=== PATIENT | female | born 1970 | race Caucasian/White ===

== ENCOUNTER 2022-08-09 09:30 | Day surgery (SDC) | payer OTHER, SELFPAY ==
[2022-08-07 13:50] VITALS: BMI 25.7
--- NOTE | 2022-08-08 12:14 | P.CONAN_ITS ---
HPI - Anesthesia Eval Consult details Narrative: 51yo F for Colonoscopy PMFSH Active Problems Active Problems: All Active Problems (Updated 08/07/22 @ 13:48 by Ana M Kebede, RN) Chronic constipation (Acute) Encounter for screening colonoscopy (Acute) Past Medical History Medical History Chronic constipation Family History Family History (Updated 01/09/22 @ 07:52 by NISHA Cheng) Mother HTN (hypertension) Father Crohn disease Daughter Ulcerative colitis Sister Hypothyroid Maternal Grandmother Hypothyroid Surgical History Surgical History (Updated 08/16/22 @ 11:53 by Kelsi Ruth) Hx of cholecystectomy Hx of colonoscopy Social History Social History (Updated 01/09/22 @ 08:05 by Maggie Sol PA-C) Household Members Other:: 2 grown kids- Alcohol intake: current Patient Tobacco Use Status: Former Tobacco user Quit Date: quit 2018 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 Meds Allergies Allergy/AdvReac Type Severity Reaction Status Date / Time COVID-19 vaccine, mRNA, Allergy Mild Unknown Verified 01/09/22 07:50 [id number], iodine Allergy Mild Unknown Verified 01/09/22 07:50 Latex, Natural Rubber Allergy Mild Unknown Verified 01/09/22 07:50 Sulfa (Sulfonamide Allergy Mild Unknown Verified 01/09/22 07:50 Antibiotics) nitrofurantoin Allergy Unknown Unknown Verified 01/09/22 07:50 [From Macrobid] Home Medications Medication Instructions Recorded Confirmed Last Taken Type linaclotide 290 mcg capsule 290 mcg PO DAILY 01/09/22 08/07/22 Unknown History (Linzess) liraglutide (weight loss) 3 mg/0.5 3 mg subcut DAILY 01/09/22 08/07/22 Unknown History mL (18 mg/3 mL) subcut pen injector (Saxenda) modafinil 200 mg tablet 200 mg PO DAILY 01/09/22 08/07/22 Unknown History ondansetron HCl 8 mg tablet 8 mg PO BID PRN Nausea 01/09/22 08/07/22 Unknown History Exam Exam Date and Time: August 08, 2022 1214 Height,Weight and Vital Signs: Height 5 ft 4 in Weight 68.039 kg Assessment and Plan Assessment Anesthesia Assessment: Chart Reviewed
[2022-08-09 09:49] VITALS: BMI 28.0
[2022-08-09] MEDS: Lactated Ringers 1,000 ML 100 ML IVCONT (10:08)
[2022-08-09 10:09] VITALS: BP 117/79; PULSE 85; RESP 16; TEMP 36.2; O2SAT 100
--- NOTE | 2022-08-09 10:22 | P.HPSUR_ITS ---
Pre-Procedural Eval Section A Date of Service: 08/09/22 Section B Chief Complaint: screening Details of Present Illness: also hx of longstanding constipation FH of IBD Relevant Family History (Specify if Yes): Yes Relevant Social History: None Present Medications: see Short Stay Collaborative assessment Medical History: Significant History (constipation ) History of Previous Operations: Relevant previous surgery/procedure and date(s) (Hx of cholecystectomy Hx of colonoscopy) Allergies: Allergies Allergy/AdvReac Type Severity Reaction Status Date / Time COVID-19 vaccine, mRNA, Allergy Mild Unknown Verified 01/09/22 07:50 [id number], iodine Allergy Mild Unknown Verified 01/09/22 07:50 Latex, Natural Rubber Allergy Mild Unknown Verified 01/09/22 07:50 Sulfa (Sulfonamide Allergy Mild Unknown Verified 01/09/22 07:50 Antibiotics) nitrofurantoin Allergy Unknown Unknown Verified 01/09/22 07:50 [From Macrobid] Review of Systems Sugical H&P ROS: Negative: Constitution, Cardiovascular, Respiratory, Neurolog ical, Psychiatric, Hem-Onc, Allergic/Immunologic, Gastrointestinal, Genitourinary, Musculoskeletal, Integumentary, Endocrine and Eyes/Ears/Nose/Throat Exam Surgical H&P Exam: Normal: HEENT, Normal: Heart, Normal: Lungs, Normal: Extremities, Normal: Abdomen, Normal: Skin and Normal: Neurological Plan Diagnosis/Plan: Unchanged I have reviewed the history and physical and performed a pertinent physical examination on my patient. No changes have occurred unless specified. Time Spent With Patient Time: Total time managing care of this patient today ____ minutes.
--- NOTE | 2022-08-09 10:28 | P.OP_ITS ---
Operative Note Operative Note Date of Service: 08/09/22 Narrative: Operative Information Procedure Description: Colonoscopy Indication: screening Anesthesia: MAC COLONOSCOPY Instrument: Olympus variable stiffness pediatric scope 190L Colonoscopy Monitoring: Vital signs and clinical assessment, continuous EKG monitoring, Pulse oximetry, Carbon Dioxide monitoring and blood pressure monitoring were done throughout the procedure. Colon withdrawal time was 10 minutes. Procedure: The patient was placed in the left lateral decubitis position and pre-procedure medications were administered. After a digital rectal examination of the ano-rectum, the video colonoscope was inserted into the rectum and advanced through the colon to the cecum/TI. The colonoscope was slowly withdrawn in a retrograde panoramic fashion and the colon mucosa was carefully examined including a retroflexed view of the rectum. Findings and interventions are described below. Procedure Difficulty: moderate due to redundant colon Findings: Terminal Ileum-normal Cecum:normal Ascending Colon: few scattered diverticula Transverse Colon -normal Descending Colon: scattered diverticula Sigmoid Colon: moderate diverticulosis Rectum: Retroflexion with small internal hemorrhoids, grade I, cold snare biopsy taken to r/o hirschsprungs Anorectum - normal (normal tone and no paradoxical closure when bearing down) Colon preparation: [place] Bowel Preparation Scale Right colon; 2 Transverse colon: 2 Left colon; 2 (0 = Unprepared colon segment with mucosa not seen due to solid stool that cannot be cleared. 1 = Portion of mucosa of the colon segment seen, but other areas of the colon segment not well seen due to staining, residual stool and/or opaque liquid. 2 = Minor amount of residual staining, small fragments of stool and/or opaque liquid, but mucosa of colon segment seen well. 3 = Entire mucosa of colon segment seen well with no residual staining, small fragments of stool or opaque liquid) Impression and Post Procedure Diagnosis: redundant colon internal hemorrhoids diverticular disease Plan: High fiber diet leaflet Avoid straining at stool, epsom salts and sitz bath, anusol supps or cream Repeat Colonoscopy in 10 years or earlier if clinically indicated if ongoing constipation recommend Mr defecography (manually manipulates for stool evacuation--r/o rectocele) Above findings were reviewed with the patient and relevant handouts were provided if indicated.
[2022-08-09 11:13] VITALS: BP 116/73; PULSE 88; RESP 16; TEMP 36.4; O2SAT 99
[2022-08-09 11:28] VITALS: BP 126/77; PULSE 72; RESP 14; TEMP 36.4; O2SAT 99
[2022-08-09 11:43] VITALS: BP 122/78; PULSE 83; RESP 15; TEMP 36.5; O2SAT 99
== END 2022-08-09 11:50 | disposition home or self-care (01) ==
PROVIDERS: PCP Hospitalist; Visit Provider Internal Medicine Gastroenterology
PROC: 0DJD8ZZ Inspection of Lower Intestinal Tract, Via Natural or Artificial Opening Endoscopic (ICD-10-PCS; CPT 45378; principal; 2022-08-09 11:00)
DX: Z12.11 Encounter for screening for malignant neoplasm of colon (principal); K57.30 Diverticulosis of large intestine without perforation or abscess without bleeding; K64.0 First degree hemorrhoids; K59.09 Other constipation; Z90.49 Acquired absence of other specified parts of digestive tract; Z88.2 Allergy status to sulfonamides; Z88.7 Allergy status to serum and vaccine; Z88.8 Allergy status to other drugs, medicaments and biological substances; Z91.041 Radiographic dye allergy status; Z91.040 Latex allergy status; Z87.891 Personal history of nicotine dependence
CPT/HCPCS: 45385; 88305; 88342

== ENCOUNTER 2022-08-11 11:31 | Outpatient (REF) | payer OTHER, SELFPAY ==
--- NOTE | ~2022-08-11 | MM_ITS ---
EXAMINATION: MM SCREENING DIGITAL BREAST TOMOSYNTHESIS, BILATERAL CLINICAL INFORMATION: Screening. Asymptomatic. The lifetime risk of breast cancer based on the Tyrer-Cuzick Model is 12%. COMPARISON: Outside mammography: 07/20/2021, 07/08/2021, 07/07/2019, 06/01/2020, 07/18/2018 ([facility]). TECHNIQUE: Digital breast tomosynthesis is performed in both the craniocaudal and mediolateral oblique views along with computer-aided detection (CAD). Synthesized 2D images are generated from the tomosynthesis. FINDINGS: There are scattered areas of fibroglandular density (ACR BI-RADS breast composition Category b). There are no significant masses, abnormal calcifications, or other abnormalities. Parenchymal pattern is similar to prior studies. There is no developing density or architectural abnormality. There is biopsy clip marker left breast upper outer quadrant. The axilla and skin contours are unremarkable. No significant changes. MM/MM tomosynthesis screening BI IMPRESSION: No mammographic evidence of malignancy. ASSESSMENT: BI-RADS 1: Negative RECOMMENDATION: Routine annual mammography screening. This patient's information was entered into a reminder system with a target due date for their next mammogram.
== END 2022-08-11 11:32 | disposition home or self-care (01) ==
LOC: HO.MAMMO 11:31
PROVIDERS: Visit Provider Hospitalist
DX: Z12.31 Encounter for screening mammogram for malignant neoplasm of breast (principal)
CPT/HCPCS: 77063; 77067

== ENCOUNTER → 2022-08-23 07:20 | Outpatient (BNVA) | payer OTHER, SELFPAY | PROVIDERS: PCP Hospitalist; Visit Provider Physician Assistant ==

== ENCOUNTER 2023-02-06 06:53 | Outpatient (REF) | payer OTHER, SELFPAY ==
[2023-02-06 21:11] LABS: Alanine Aminotransferase 22 U/L (0-31); Albumin Level 4.3 g/dL (3.5-5.0); Alkaline Phosphatase 80 U/L (39-117); Anion Gap 12 (12-20); Aspartate Amino Transferase 20 U/L (5-31); Bilirubin Total 0.6 mg/dL (0.0-1.0); Blood Urea Nitrogen 8 mg/dL (9-16); Calcium 9.9 mg/dL (8.4-10.2); Carbon Dioxide 27 mmol/L (22-29); Chloride 106 mmol/L (96-108); Cholesterol 184 mg/dL (<200); Estimated Glomerular Filt Rate > 60; Glucose Random 80 mg/dL (60-115); HDL Cholesterol 57 mg/dL (>40); LDL Cholesterol Calculated 116 mg/dL (<100); Potassium 4.7 mmol/L (3.3-5.1); Sodium 140 mmol/L (135-145); Total Protein 7.2 g/dL (6.5-8.0); Triglycerides 57 mg/dL (<150)
[2023-02-06 21:27] LABS: Thyroid Stimulating Hormone 1.09 uIU/mL (0.32-4.0)
== END 2023-02-06 06:54 | disposition home or self-care (01) ==
LOC: HO.LAB 06:53
PROVIDERS: PCP Hospitalist; Visit Provider Hospitalist
DX: Z00.00 Encounter for general adult medical examination without abnormal findings (principal)
CPT/HCPCS: 36415; 80053; 80061; 84443

== ENCOUNTER 2023-07-12 13:18 | Outpatient (AMB) | payer OTHER, SELFPAY ==
--- NOTE | 2023-07-12 08:49 | MHC.OFFVIS ---
Intake Visit Reasons: Former Smoker Allergies COVID-19 vaccine, mRNA, [id number], Allergy (Mild, Verified 08/23/22 07:30) Unknown iodine Allergy (Mild, Verified 08/23/22 07:30) Unknown Latex, Natural Rubber Allergy (Mild, Verified 08/23/22 07:30) Unknown Sulfa (Sulfonamide Antibiotics) Allergy (Mild, Verified 08/23/22 07:30) Unknown nitrofurantoin [From Macrobid] Allergy (Unknown, Verified 08/23/22 07:30) Unknown HPI HPI Former Smoker: Details: [phone] Initial visit for this 52yo former smoker with a 30PYH. Patient started smoking at age 12 for 35 years at 1ppd. She quit in 2019. Quit prior during pregnancies. . Denies marijuana use. Denies second hand smoke exposure. Denies exposure to chemicals or substances like asbestos. . Denies known family history of lung cancer. Paternal grandmother in 80's. Denies personal history of cancers. Denies chest CT in last year. . Denies recent travel outside the [place]. Denies recent respiratory illness or recent hospitalization for respiratory issues. Reports testing positive for COVID. Admits receiving COVID Vaccine. Allergic reaction to first pfizer shot then 2 J&J shots. . Denies fever, chills, new/worsening cough, hemoptysis, hoarseness or dysphagia. Denies significant chest pain, significant dyspnea or unintentional weight loss. Patient Lung Cancer Screening Questionnaire reviewed with patient by provider. . Shared Decision Making Completed. Patient meets criteria. Discussed in detail with patient, the risk vs benefit of LDCT screening. Patient consents to proceed with scan. Discussed and encouraged continued smoking cessation. [facility] Medical History (Updated 07/12/23 @ 10:46 by Kenia Colvin PA-C) Diverticulosis Chronic constipation Personal history of nicotine dependence Surgical History (Updated 07/12/23 @ 10:42 by Kenia Colvin PA-C) History of bunionectomy of left great toe History of colonoscopy History of cholecystectomy (~2005) Family History Mother HTN (hypertension) Father Crohn disease Daughter Ulcerative colitis Sister Hypothyroid Maternal Grandmother Hypothyroid Social History (Updated 07/12/23 @ 10:46 by Kenia Colvin PA-C) Household Members Other:: 2 grown kids- Alcohol intake: current Patient Tobacco Use Status: Former Tobacco user Quit Date: quit 2018 Years Smoked: onset 12yo, 1ppd x 35yrs, 30pyh - quit 2018 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 Telehealth Telehealth Telehealth Platform: Telephone Location of patient: address on file Patient Identification confirmed using: Name, : Yes Telehealth method: voice only Patient verbally consented to treatment: Yes Patient verbally consented to billing insurance company: Yes Patient informed of any privacy concerns related to visit: Yes Minutes spent on Phone/Video with Pt.: 15 Assessment & Plan Assessment & Plan (1) Personal history of nicotine dependence: Comment: (former smoker- onset 12yo, 1ppd x 35yrs, 30pyh - quit 2018) Code(s): Z87.891 - Personal history of nicotine dependence Category: Medical Plan: - SDM visit completed today in office. - Patient meets criteria for LDCT for lung cancer screening purposes and is asymptomatic. - Smoking cessation counseling offered. Patients can always call [phone]. - Will arrange for a LDCT scan of the chest for screening purposes at [facility]. - Risks, benefits, and alternatives were discussed in detail and the patient agrees to proceed. - Risks discussed include but are not limited to: radiation exposure, anxiety during testing and while awaiting results, false negatives, false positives and possibility of additional intervention such as further imaging or surgical procedures for benign disease. - Benefits are obviously detection of lung cancer at an early stage which can lead to improved outcomes. - Discussed the importance of screening program compliance with adherence to yearly LDCT scan as scheduled - or sooner interval scans for personalized screening regimen. - Discussed follow up plan. Our office will send a letter discussing results and if needed set up phone call and office visit based on CT findings. - Patient educated on results categorization and the management decisions for suspicious findings potentially found on the screening LDCT scan. Any patient with a Lung RADS score of 3 or 4 will be reviewed by a multidisciplinary team at [facility] to form a plan of action in regards to scan findings. - If further work up is warranted for a suspicious lung finding this will be followed by the Lung Cancer Screening program in conjunction with the Thoracic Surgery Department at [facility]. - A copy of the office note and LDCT will be sent to the patient's PCP - as well as documentation on any associated further plans of care. - Incidental findings on LDCT are the PCP's responsibility. These findings are indicated with an S finding on the LDCT Assessment. A note discussing the findings will be sent to the PCP who is then responsible for further management. - All questions answered.? Coding Level of Care Code Lung Cancer Screening G0296 Diagnoses Personal history of nicotine dependence Z87.891
== END 2023-07-12 13:20 | disposition home or self-care (01) ==
LOC: HO.HMS 13:18
PROVIDERS: PCP Hospitalist; Referring Provider Hospitalist; Visit Provider Physician Assistant Medical
DX: Z87.891 Personal history of nicotine dependence (principal)
CPT/HCPCS: G0296

== ENCOUNTER → 2023-07-12 13:18 | Outpatient (BNVA) | payer OTHER, SELFPAY | PROVIDERS: PCP Hospitalist; Visit Provider Physician Assistant Medical | DX: Z87.891 Personal history of nicotine dependence (principal) | CPT/HCPCS: G0296 ==

== ENCOUNTER 2023-07-13 10:20 | Outpatient (REF) | payer OTHER, SELFPAY ==
--- NOTE | ~2023-07-13 | CT_ITS ---
EXAMINATION: CT LOW-DOSE SCREENING CHEST WITHOUT CONTRAST CLINICAL INFORMATION: Personal history of nicotine dependence. The patient has a 30 pack-year history of smoking, having quit 1 year ago. COMPARISON: None available. TECHNIQUE: Multidetector volumetric CT imaging of the chest is performed on a Siemens SOMATOM Definition scanner without contrast using low dose technique. Additional 2-D coronal and sagittal reformatted images and axial 3-D maximum intensity projection (MIP) images are generated on the CT workstation. This CT examination was performed using dose optimization techniques as appropriate, variously including the following: *Automated exposure control. *Adjustment of mA and/or kV according to patient size (this includes techniques or standardized protocols for targeted exams where dose is matched to indication/reason for exam; i.e. extremities or head). *Use of iterative reconstruction technique. TOTAL EXAM DLP: 42 mGy-cm CTDIvol: 1.21 mGy FINDINGS: PULMONARY NODULES: Some scattered calcified granulomas are present. There is a 3 mm left lower lobe nodule (6:348). No suspicious pulmonary nodules or masses are seen. LUNGS: An accessory azygos fissure is noted. Lungs bilaterally symmetrically expanded. No focal lung nodule or mass. No effusion or pneumothorax. Central airways patent. MEDIASTINUM: No mediastinal, hilar or axillary adenopathy or free fluid collection. CORONARY ARTERY CALCIFICATION: None visualized on this study. THYROID GLAND: Unremarkable to the extent seen. CARDIOVASCULAR STRUCTURES: Aortic and heart size normal. No pericardial effusion. CHEST WALL/AXILLA: Unremarkable. UPPER ABDOMEN: Included portions of the solid organs in the upper abdomen unremarkable on noncontrast imaging. Status post cholecystectomy. OSSEOUS STRUCTURES: No suspicious focal findings. CT/CT lung screening IMPRESSION: No finding seen worrisome for malignancy. Small benign-appearing left lower lobe nodule. ASSESSMENT: 1. Lung-RADS Category 2: Benign appearance or behavior of nodules. N/A. 2. Lung-RADS Category S: Negative. There are no clinically significant or potentially clinically significant findings not related to the lungs requiring urgent additional evaluation. RECOMMENDATION: Continued routine annual low-dose CT lung screening in 1 year is recommended. An order for CT CHEST LOW DOSE CANCER SCREENING ([id number]) can be placed.
== END 2023-07-13 10:21 | disposition home or self-care (01) ==
LOC: HO.CT 10:20
PROVIDERS: PCP Hospitalist; Visit Provider Nurse Practitioner Family
DX: Z12.2 Encounter for screening for malignant neoplasm of respiratory organs (principal); Z87.891 Personal history of nicotine dependence
CPT/HCPCS: 71271

== ENCOUNTER 2023-09-05 07:53 | Outpatient (REF) | payer OTHER, SELFPAY ==
--- NOTE | ~2023-09-05 | MM_ITS ---
EXAMINATION: MM SCREENING DIGITAL BREAST TOMOSYNTHESIS, BILATERAL CLINICAL INFORMATION: Screening. Asymptomatic. COMPARISON: Mammography: This study is compared with prior exams dating back to 2019. TECHNIQUE: Digital breast tomosynthesis is performed in both the craniocaudal and mediolateral oblique views along with computer-aided detection (CAD). Synthesized 2D images are generated from the tomosynthesis. FINDINGS: There are scattered areas of fibroglandular density (ACR BI-RADS breast composition Category b). There are no significant masses, abnormal calcifications, or other abnormalities. IMPRESSION There is tissue marker in a subcentimeter, oval, benign mass of the upper outer quadrant of the left breast.: No mammographic evidence of malignancy. ASSESSMENT: BI-RADS BI-RADS 2 - Benign Findings RECOMMENDATION: Routine annual mammography screening. 1 year F/U This examination should not preclude the clinical evaluation of a suspicious palpable abnormality. This patient's information was entered into a reminder system with a target due date for their next mammogram.
== END 2023-09-05 07:54 | disposition home or self-care (01) ==
LOC: HO.MAMMO 07:53
PROVIDERS: PCP Hospitalist; Visit Provider Hospitalist
DX: Z12.31 Encounter for screening mammogram for malignant neoplasm of breast (principal)
CPT/HCPCS: 77063; 77067

== ENCOUNTER → 2023-09-05 08:00 | Outpatient (BNV) | payer OTHER, SELFPAY | PROVIDERS: PCP Hospitalist; Visit Provider Radiology Diagnostic Radiology | DX: Z12.31 Encounter for screening mammogram for malignant neoplasm of breast (principal) | CPT/HCPCS: 77063; 77067 ==

== ENCOUNTER 2023-09-17 15:52 | Outpatient (REF) | payer OTHER, SELFPAY ==
--- NOTE | ~2023-09-17 | US_ITS ---
EXAMINATION: US PELVIS CLINICAL INFORMATION: Abnormal uterine bleeding, IUD in place. COMPARISON: None available. TECHNIQUE: Ultrasound of the pelvis is performed using both transabdominal and transvaginal transducers along with Doppler. Transvaginal imaging is performed due to inadequate visualization transabdominally. FINDINGS: Uterus: The uterus measures 6.7 x 3.4 x 4.7 cm. The endometrial stripe is obscured because of the IUD but does not appear thickened. The IUD appears appropriately positioned. Adnexa: The right ovary is seen transvaginally measuring 2.2 x 1.2 x 1.5 cm, volume 2 mL. The right ovary appears normal. The left ovary is suboptimally imaged visualized only transabdominally. The left ovary measures 4.1 x 2.6 x 3.5 cm, volume 19.5 mL. Normal follicles are seen in both ovaries. US/US pelvic and transvaginal IMPRESSION: IUD appears appropriately positioned. The IUD obscures the endometrial stripe but it does not appear significantly thickened.
== END 2023-09-17 15:53 | disposition home or self-care (01) ==
LOC: HO.US 15:52
PROVIDERS: PCP Hospitalist; Visit Provider Obstetrics & Gynecology
DX: N93.9 Abnormal uterine and vaginal bleeding, unspecified (principal)
CPT/HCPCS: 76830; 76856

== ENCOUNTER 2024-01-08 20:00 | Outpatient (REF) | payer OTHER, SELFPAY ==
[2024-01-08 20:06] LABS: MANUAL DIFF FLAG NO
[2024-01-08 20:09] LABS: Basophils Percent Auto 0.4 % (0-2); Eosinophils Absolute Auto 0.1 X10*3/uL (0.0-0.4); Eosinophils Percent Auto 1.4 % (0-4); Hematocrit 41.4 % (37.0-47.0); Hemoglobin 14.4 g/dl (12.0-16.0); Imm Gran Abs Auto 0.01 X10*3/uL (0.00-0.03); Imm Gran Pct Auto 0.1 % (0.0-0.4); Lymphocytes Absolute Auto 2.5 X10*3/uL (1.2-4.9); Lymphocytes Percent Auto 33.3 % (20-40); Mean Corpuscular HGB Conc 34.8 g/dl (31.0-35.0); Mean Corpuscular Hemoglobin 32.2 pg (27.0-33.0); Mean Corpuscular Volume 92.6 fL (80.0-98.0); Mean Platelet Volume 8.8 fL (9.4-12.3); Monocytes Absolute Auto 0.6 X10*3/uL (0.1-1.2); Monocytes Percent Auto 7.4 % (2-11); Neutrophils Absolute Auto 4.4 x10*3/uL (2.0-8.3); Neutrophils Percent Auto 57.4 % (45-73); Platelet Count 269 X10*3/uL (160-400); Red Blood Count 4.47 X10*6/uL (4.20-5.50); Red Cell Distribution Width 13.1 % (11.0-16.0); White Blood Count 7.6 X10*3/uL (4.8-10.8)
[2024-01-08 20:29] LABS: Alanine Aminotransferase 28 U/L (0-31); Albumin Level 4.4 g/dL (3.5-5.0); Alkaline Phosphatase 80 U/L (39-117); Anion Gap 11 (12-20); Aspartate Amino Transferase 24 U/L (5-31); Bilirubin Total 0.6 mg/dL (0.0-1.0); Blood Urea Nitrogen 11 mg/dL (9-16); Calcium 9.8 mg/dL (8.4-10.2); Carbon Dioxide 27 mmol/L (22-29); Chloride 104 mmol/L (96-108); Cholesterol 209 mg/dL (<200); Estimated Glomerular Filt Rate > 60; Glucose Random 92 mg/dL (60-115); HDL Cholesterol 81 mg/dL (>40); LDL Cholesterol Calculated 119 mg/dL (<100); Potassium 4.4 mmol/L (3.3-5.1); Sodium 138 mmol/L (135-145); Total Protein 7.1 g/dL (6.5-8.0); Triglycerides 48 mg/dL (<150)
== END 2024-01-08 20:01 | disposition home or self-care (01) ==
LOC: HO.LAB 20:00
PROVIDERS: PCP Hospitalist; Visit Provider Hospitalist
DX: E66.09 Other obesity due to excess calories (principal)
CPT/HCPCS: 36415; 80053; 80061; 85025

== ENCOUNTER 2024-09-10 07:28 | Outpatient (REF) | payer OTHER, SELFPAY ==
--- NOTE | ~2024-09-10 | CT_ITS ---
EXAMINATION: CT LUNG SCREENING HISTORY: Z87.891 - Personal history of nicotine dependence TECHNIQUE: Low dose axial images were obtained from the sternal notch to upper abdomen without IV contrast per standard departmental protocol. Sagittal and coronal reformatted images were also obtained and reviewed. One or more of the following techniques was used for dose reduction: Automated exposure control, adjustment of the mA and/or kV according to patient size, use of iterative reconstruction technique. DLP: 48 mGy-cm COMPARISON: Comparison is made with the prior examination dated 07/13/2023. FINDINGS: Lung nodules: Again seen are punctate calcified granulomas in the right lower lobe (series 4, image 85) and in the left lower lobe (series 4, image 102). There is a stable 2 mm nodule in the left lower lobe (series 4, image 117). No suspicious pulmonary nodules are identified. Emphysema: mild Coronary Calcification: none Aortic Arch Calcification: none Potentially Significant Incidentals : none Additional Chest Findings: There is no pleural or pericardial effusion. No mediastinal or axillary lymphadenopathy is identified. Visualized upper abdomen: Again seen is a 1.5 cm hypodensity in the left lobe of the liver which is difficult to characterize on this unenhanced examination. The visualized portions of the spleen and adrenals have an unremarkable unenhanced appearance. CT/CT lung screening IMPRESSION: 1. No suspicious pulmonary nodules are identified. 2. Stable 1.5 cm hypodensity in the left lobe of the liver could represent a cyst. Evaluation is limited on this unenhanced CT. Ultrasound evaluation is suggested. LUNG-RADS ASSESSMENT: Lung-RADS 2: Benign MANAGEMENT: Continue annual screening with LDCT in 12 months Category S: N/A Electronically signed by: Martinez Horn MD 09/10/2024 09:04 AM EDT
--- NOTE | ~2024-09-10 | MM_ITS ---
EXAMINATION: MM SCREENING DIGITAL BREAST TOMOSYNTHESIS, BILATERAL CLINICAL INFORMATION: Screening. Asymptomatic. COMPARISON: Mammography: Comparison is made with available priors TECHNIQUE: Digital breast mammography with tomosynthesis is performed in both the craniocaudal and mediolateral oblique views along with computer-aided detection (CAD). FINDINGS: There are scattered areas of fibroglandular density (ACR BI-RADS breast composition Category b). Left marker clip. There are no significant masses, abnormal calcifications, or other abnormalities. MM/MM tomosynthesis screening BI IMPRESSION: No mammographic evidence of malignancy. ASSESSMENT: BI-RADS BI-RADS 2 - Benign Findings RECOMMENDATION: Routine annual mammography screening. 1 year F/U This examination should not preclude the clinical evaluation of a suspicious palpable abnormality. This patient's information was entered into a reminder system with a target due date for their next mammogram. Electronically signed by: Marion Tirado DO 09/13/2024 01:49 PM EDT
--- OUTSIDE RECORDS SUMMARY | 2024-09-10 07:31 | XMS_ITS | Data Portability ---
Author Organization [facility] [address] Address [address] [place] [address] Assessment No assessment recorded. Plan of Treatment Reminders Order Date Submit Date Provider Last Modified By Organization Details Last Modified Time Details Appointments None record ed. Lab None record ed. Referral None record ed. Procedures None record ed. Surgeries None record ed. Imaging None record ed. Medication Orders None record ed. Patient TargetsNo targets recorded. Patient InstructionsNo instructions recorded. Reason for Referral None Reported. Procedures Surgical History Date Name Laterality Status Provider Name and Address Organization Details Recorded Time 3 OC-UDS Send Out Template NON DOT completed LORETTA BROOKS [facility] 06/08/2022 08:26:39 Imaging Results None recorded. Procedure Notes None recorded. Medical Equipment None Reported. Medications Name Sig Start Date Stop Date Status Note LastModified by Organization Details LastModified Time cefpodoxime 100 mg tablet TAKE 1 TABLET BY MOUTH EVERY 12 HOURS FOR 7 DAYS active Not Available Not Available N ot Available ondansetron HCl 8 mg tablet TAKE 1 TABLET ORALLY 2 TIMES A DAY 30 DAY(S) active Not Available Not Available No t Available valacyclovir 500 mg tablet active Not Available Not Available Not Available modafinil 200 mg tablet TAKE 1 TABLET IN THE MORNING ORALLY ONCE A DAY 28 DAYS active Not Available Not Available No t Available amitriptylin e 10 mg tablet TAKE 1 TABLET BY MOUTH EVERY DAY AT BEDTIME FOR 30 DAYS active Not Available Not Available No t Available Linzess 145 mcg capsule TAKE 1 CAPSULE BY MOUTH DAILY 30 MINUTES BEFORE THE FIRST MEAL OF THE DAY active Not Available Not Available N ot Available Linzess 290 mcg capsule active Not Available Not Available Not Available Saxenda 3 mg/0.5 mL (18 mg/3 mL) subcutaneous pen injector PLEASE SEE ATTACHED FOR DETAILED DIRECTIONS active Not Available Not Available N ot Available Motegrity 1 mg tablet TAKE 2 TABLETS BY MOUTH DAILY active Not Available Not Available Not Available BD [place] 2nd Gen Pen Needle 32 gauge x USE 1 NEEDLE WITH SAXENDA INTRAMUSCUL AR ONCE A DAY 30 DAYS active Not Available Not Available Not Available Vitals None Recorded Social History None recorded. Functional Status None recorded. Mental Status None recorded. Family History Nothing Reported. Medical History No medical history recorded. Gynecological HistoryNo gynecological history recorded. Obstetrics History GPAL:G 0 P 0 0 0 0 Past Encounters Encounter ID Performer Location Encounter Start Date Encounter Closed Date Diagnosis/Indication Diagnosis SNOMED-CT Code Diagnosis ICD10 Code Diagnosis Note [id number] [address] [place] [address] 07/16/2018 12:31:02 07/16/2018 13:04:38 [id number] [address] [place] [address] 03/17/2019 13:06:08 03/17/2019 13:45:55 [id number] [address] [place] [address] 02/11/2017 08:18:20 02/11/2017 08:58:11 [id number] [address] [place] [address] 01/28/2017 08:16:10 01/28/2017 09:27:50 [id number] [facility] [address] [place] [address] 06/08/2022 08:04:41 06/08/2022 08:25:58 History and physical examination, occupation [id number] Z02.1 Health Concerns Section Related Observation LastModified by Organization Detai ls LastModified Time None Recorded Concern Status LastModified by Organization Details LastModified Time None Recorded Advance Directives Directive None Recorded Payers Insurance Date Sequence Insurance Name Policy Number Policy Bell Covered Member ID Bell Member ID Guarantor Name 06/08/2022 OC-ESCREEN [employer] [facility] Linda Mabry 06/08/2022 1 [employer] [id number] Linda Mabry [id number] Linda Mabry OBGyn Episode No OBEpisode recorded.
--- OUTSIDE RECORDS SUMMARY | 2024-09-10 07:31 | XMS_ITS | Patient Health Record ---
Author Organization [facility] Address [address] [place] [address] Care Team Providers Care Insert Cutter Name Role Phone SYDNI ROBERTS Primary Care Provider Shalonda Robledo Unavailable [phone] Adalgisa Ro Unavailable [phone] Allergies Allergen (clinical drug ingredient) Drug/Non Drug Allergy documented on EMR Reaction Allergy Type Onset Date Status povidone-iodine Betadine anaphylaxis Drug Allergy Active nitrofurantoin, macrocrystals / nitrofurantoin, monohydrate Macrobid hives Drug Allergy Active topiramate Topamax blurry vision Drug Allergy Ac tive Latex Latex Unknown Allergy Active Substance with sulfonamide structure and antibacterial mechanism of action (substance) Sulfa Antibiotics hives Drug Allergy Active SARS-CoV-2 (COVID-19) vaccine, mRNA spike protein Pfizer COVID-19 Vac-Homero 5-11y anaphylaxis Drug Allergy Active Reason For Referral Reason annual screening dis coloration above the left lip Diagnosis 1 Encounter for screen ing for malignant neoplasm of skin (Z12.83) Referral Organization [facility] Referring Provider First Name Shalonda Referring Provider Last Name Meena Referring Provider Speciality Internal edicine Referred Provider Specialty Dermatology General Notes Referral faxed to [facility]. Please contact patient to [email or web address] 02/14/2024 12:51:17 PM > Referral Priority Routine Reason pain planter aspect left foot Please evaluate and treat Diagnosis 1 Left foot pain (M79. 672) Referral Organization [facility] Referring Provider First Name SYDNI Referring Provider Last Name ARMANDO Referring Provider Speciality Internal M edicine Referred Provider Specialty Podiatry General Notes Please call the raoul ent to schedule the appointment, [facility] - [phone], Tree Fontainein 07/03/2024 03:53:58 PM > Referral Priority Routine Medications Medication SIG (Take, Route, Frequency, Duration) Notes Start Date End Date Status Linzess 290 MCG TAKE 1 CAPSULE DAILY AT LEAST 30 MINUTES BEFORE THE FIRST MEAL OF THE DAY ON AN EMPTY STOMACH Active metFORMIN HCl ER 500 MG 1 tablet with ev ening meal Orally twice a day; Duration: 30 days 11/16/2023 Not-Taking Ibuprofen 800 MG 1 tablet with food o r milk as needed Orally Three times a day; Duration: 90 days prn 12/28/2020 Active valACYclovir HCl 500 MG 1 tablet Orally 2 TIMES A DAY NEEDED; Duration: 10 days prn 05/19/2022 Active Ondansetron HCl 8 mg TAKE 1 TABLET TWICE A DAY NEEDED; Duration: 10 days Active Progesterone 100 MG 1 capsule Orally At night Active Estradiol 0.75 MG/0.75GM 1 patch to skin Transdermal Two times a Week Active Modafinil 200 MG TAKE ONE (1) TABLET BY MOUTH EACH MORNING; Duration: 90 08/18/2024 Active BD Pen Needle Charlotte 2nd Gen 32G X 4 MM USE 1 NEEDLE WITH SAXENDA INTRAMUSCULAR ONCE A DAY 30 DAYS; Duration: 90 Not-Taking Wellbutrin XL 300 MG 1 tablet in the mor toi Orally Once a day; Duration: 30 days Active valACYclovir HCl 500 MG 1 tablet Orally two times a day as needed; Duration: 10 days 05/22/2023 Not-Taking Wegovy 0.25 MG/0.5ML 0.25 mg Subcutaneou s once a week; Duration: 30 day(s) 05/19/2022 Not-Taking DHEA 25 MG as directed Orally daily; Duration: 90 days 07/06/2023 Not-Jose ing Saxenda 18 MG/3ML 3 mg Subcutaneous on ce a day; Duration: 90 days Not-Takin g Immunizations Vaccine Route Administration Date Status Comme nts COVID 19 Pfizer Unknown 02/20/2020 Administered COVID Maxine Unknown 08/27/2020 Administered COVID Maxine Unknown 03/01/2021 Administered Flu Unknown 12/02/2021 Administered Flublok Unknown 12/04/2023 Administered Influenza Unknown 12/10/2020 Administered Shingrix Unknown 02/14/2022 Administered Tdap Unknown 09/03/2015 Administered Social History Tobacco Use: Social History Observation Description Date Details (start date - stop date) Former Smoker NA - NA Tobacco Use/Smoking Question Answer Notes Are you a former smoker Alcohol Screen (Audit-C) Question Answer Notes Did you have a drink contain ing alcohol in the past year? Yes How often did you have a dri nk containing alcohol in the past year? Monthly or less (1 point) Points 1 Interpretation Negative Problems Problem Type SNOMED Code ICD Code Onset Dates Problem Status W/U Status Risk Notes Problem Genital herpes simplex (41092907) Herpesviral infection of urogenital system, unspecified (A60.00) Active confirmed Problem Basal cell carcinoma of face (709854164) Basal cell carcinoma of skin of other parts of face (C44.319) Active confirmed Problem Basal cell carcinoma of lower extremity (239350315) Basal cell carcinoma of skin of left lower limb, including hip (C44.719) Active confirmed Problem Obesity due to excess calories (737915317) Other obesity due to excess calories (E66.09) Active confirmed Problem Insomnia (383654628) Insomnia, unspecified (G47.00) Active confirmed Problem Sleep disorder (80697214) Sleep disorder, unspecified (G47.9) Active confirmed Problem Constipation (83839176) Constipation, unspecified (K59.00) Active confirmed Problem Polyarthritis (837614640) Other polyosteoarthritis (M15.8) Active confirmed Problem Menopause (815075893) Menopausal and female climacteric states (N95.1) Active confirmed Problem History of disease caused by Severe acute respiratory syndrome coronavirus 2 (situation) (886451293937109 105) Personal history of COVID-19 (Z86.16) Active confirmed Problem Overweight (936397804) Overweight (BMI 25.0-29.9) (E66.3) Active confirmed Vital Signs Heart Rate 71 /min 07/02/2024 Temperature 97.8 degrees Fahrenheit 07/02/2024 Blood pressure diastolic 80 mm Hg 07/02/2024 Oximetry 99 % 07/02/2024 Height 64 in 07/02/2024 Blood pressure systolic 110 mm Hg 07/02/2024 Weight 159.2 lbs 07/02/2024 BMI 27.32 kg/m2 07/02/2024 Encounters Encounter Location Date Provider Diagnosis [address] [place] [address] 10/05/2023 TROY GUL Other obesity due to excess calories E66.09 and Dietary counseling and surveillance Z71.[address] [place] [address] 11/16/2023 TROY GUL Other obesity due to excess calories E66.09 ; Dietary counseling and surveillance Z71.3 and Other polyosteoarthritis M15.[address] [place] [address] 12/21/2023 TROY GUL Dietary counseling a nd surveillance Z71.3 and Overweight (BMI 25.0-29.9) E66.[address] [place] [address] 01/23/2024 TROY GUL [address] [place] [address] 02/04/2024 Shalonda Robledo Annual physical exam Z00.[address] [place] [address] 02/13/2024 TROY GUL Overweight (BMI 25.0-29.9) E66.3 and Dietary counseling and surveillance Z71.[address] [place] [address] 03/20/2024 TROY GUL Dietary counseling a nd surveillance Z71.3 and Overweight (BMI 25.0-29.9) E66.[address] [place] [address] 07/02/2024 TROY GUL Basal cell carcinoma of skin of left lower limb, including hip C44.719 ; Basal cell carcinoma of skin of other parts of face C44.319 ; Sleep disorder, unspecified G47.9 ; Other obesity due to excess calories E66.09 and Dietary counseling and surveillance Z71.[address] [place] [address] 12/03/[address] [place] [address] 07/04/[address] [place] [address] 08/11/[address] [place] [address] 08/20/2024 Petecy Ro [address] [place] [address] 04/30/[address] [place] [address] 05/02/[address] [place] [address] 05/09/[address] [place] [address] 08/05/2024 [facility] Assessments Encounter Date Diagnosis (ICD Code) Assessment Notes Treatment Notes Treatment Clinical Notes Section Notes 03/20/2024 Dietary counseling and surveillance (ICD-10 - Z71.3) Linda is 53 years old pleasant lady with sleep disorder, osteoarthritis, herpes infection is here for weight management. At one point she was 183 pounds and she is gradually lost weight and today she weighs 152 pounds and gained 4 lbs she has not been exercising regularly because of back pain and before that she was on vacation..Her goal weight is around 140 and under. Dietary recommendations. Food recall was done today and patient advised to be on low calorie, low carbohydrate diet. Restrict calories to less than 1500 kcal in 24 hours. Low glycemic index foods and encouraged. Meal replacements were recommended. Advised to use yvce-uuk-tjgonjn multivitamins and vitamin D. Advised to use calorie counter and adhere to portion control. Monthly goal is to lose 4-6 pounds Pharmacotherapy. Continue on current regimen. Side effects explained to the patient. Goal is to lose 3-5% of body weight in 3 months. Exercise. Patient encouraged to increase frequency, intensity and duration of exercise. Encouraged to burn at least 250-500 kcal in one session. Also encouraged to do weight training Assess. Different risk factors discussed with the patient and addressed Advise. Patient was given clear And specific advise that she will comply with Low-calorie diet and try not to exceed more than 1300 kcal in 24 hours. Agree. Mutually agreed to work together to achieve appropriate goals Assist. Motivational interviewing done. Arrange. Follow-up appointment arranged. Counseling. 15 minutes spent Face to face with the patient more than 50% of time was spent counseling 03/20/2024 Overweight (BMI 25.0-29.9) (ICD-10 - E66.3) Linda is 53 years old pleasant lady with sleep disorder, osteoarthritis, herpes infection is here for weight management. At one point she was 183 pounds and she is gradually lost weight and today she weighs 152 pounds and gained 4 lbs she has not been exercising regularly because of back pain and before that she was on vacation..Her goal weight is around 140 and under. Dietary recommendations. Food recall was done today and patient advised to be on low calorie, low carbohydrate diet. Restrict calories to less than 1500 kcal in 24 hours. Low glycemic index foods and encouraged. Meal replacements were recommended. Advised to use xavg-lhc-hilookz multivitamins and vitamin D. Advised to use calorie counter and adhere to portion control. Monthly goal is to lose 4-6 pounds Pharmacotherapy. Continue on current regimen. Side effects explained to the patient. Goal is to lose 3-5% of body weight in 3 months. Exercise. Patient encouraged to increase frequency, intensity and duration of exercise. Encouraged to burn at least 250-500 kcal in one session. Also encouraged to do weight training Assess. Different risk factors discussed with the patient and addressed Advise. Patient was given clear And specific advise that she will comply with Low-calorie diet and try not to exceed more than 1300 kcal in 24 hours. Agree. Mutually agreed to work together to achieve appropriate goals Assist. Motivational interviewing done. Arrange. Follow-up appointment arranged. Counseling. 15 minutes spent Face to face with the patient more than 50% of time was spent counseling 02/13/2024 Dietary counseling and surveillance (ICD-10 - Z71.3) Linda is 53 years old pleasant lady with sleep disorder, osteoarthritis, herpes infection is here for weight management. At one point she was 183 pounds and she is gradually lost weight and today she weighs 148 pounds. She was on vacation and she was trying to be compliant with low calorie diet. Her goal weight is around 140 and under. Dietary recommendations. Food recall was done today and patient advised to be on low calorie, low carbohydrate diet. Restrict calories to less than 1500 kcal in 24 hours. Low glycemic index foods and encouraged. Meal replacements were recommended. Advised to use rnna-oiz-htookce multivitamins and vitamin D. Advised to use calorie counter and adhere to portion control. Monthly goal is to lose 4-6 pounds Pharmacotherapy. Continue on current regimen. Side effects explained to the patient. Goal is to lose 3-5% of body weight in 3 months. Exercise. Patient encouraged to increase frequency, intensity and duration of exercise. Encouraged to burn at least 250-500 kcal in one session. Also encouraged to do weight training Assess. Different risk factors discussed with the patient and addressed Advise. Patient was given clear And specific advise that she will comply with Low-calorie diet and try not to exceed more than 1300 kcal in 24 hours. Agree. Mutually agreed to work together to achieve appropriate goals Assist. Motivational interviewing done. Arrange. Follow-up appointment arranged. Counseling. 15 minutes spent Face to face with the patient more than 50% of time was spent counseling 02/13/2024 Overweight (BMI 25.0-29.9) (ICD-10 - E66.3) Linda is 53 years old pleasant lady with sleep disorder, osteoarthritis, herpes infection is here for weight management. At one point she was 183 pounds and she is gradually lost weight and today she weighs 148 pounds. She was on vacation and she was trying to be compliant with low calorie diet. Her goal weight is around 140 and under. Dietary recommendations. Food recall was done today and patient advised to be on low calorie, low carbohydrate diet. Restrict calories to less than 1500 kcal in 24 hours. Low glycemic index foods and encouraged. Meal replacements were recommended. Advised to use lovg-hmu-awjzsfs multivitamins and vitamin D. Advised to use calorie counter and adhere to portion control. Monthly goal is to lose 4-6 pounds Pharmacotherapy. Continue on current regimen. Side effects explained to the patient. Goal is to lose 3-5% of body weight in 3 months. Exercise. Patient encouraged to increase frequency, intensity and duration of exercise. Encouraged to burn at least 250-500 kcal in one session. Also encouraged to do weight training Assess. Different risk factors discussed with the patient and addressed Advise. Patient was given clear And specific advise that she will comply with Low-calorie diet and try not to exceed more than 1300 kcal in 24 hours. Agree. Mutually agreed to work together to achieve appropriate goals Assist. Motivational interviewing done. Arrange. Follow-up appointment arranged. Counseling. 15 minutes spent Face to face with the patient more than 50% of time was spent counseling 07/02/2024 Basal cell carcinoma of skin of other parts of face (ICD-10 - C44.319) Linda is 53 years old lady with sleep disorder, osteoarthritis, insomnia and recent diagnosis of basal cell carcinoma on 2 sites. One on left long area which is infiltrated and 1 on the left side of her upper lip which is nodular type. She is here today for medical weight management. She is currently on Wellbutrin/naltr exone and she is unable to lose any weight. Basal cell carcinoma. She has consultation with a sewer pipe layer and with the plastic surgeon for Mohs procedure. Sleep disorder. She is currently on modafinil and it is helping Dietary recommendations. Food recall was done today and patient advised to be on low calorie, low carbohydrate diet. Restrict calories to less than 1500 kcal in 24 hours. Low glycemic index foods and encouraged. Meal replacements were recommended. Advised to use oawi-riy-tdxznpn multivitamins and vitamin D. Advised to use calorie counter and adhere to portion control. Monthly goal is to lose 4-6 pounds Pharmacotherapy. She is plateaued on Wellbutrin/naltr exone. She would like to continue Wellbutrin 300 mg 1 tablet daily. She may consider adding naltrexone later. Side effects explained to the patient. Goal is to lose 3-5% of body weight in 3 months. Exercise. Patient encouraged to increase frequency, intensity and duration of exercise. Encouraged to burn at least 250-500 kcal in one session. Also encouraged to do weight training Assess. Different risk factors discussed with the patient and addressed Advise. Patient was given clear And specific advise that she will comply with Low-calorie diet and try not to exceed more than 1300 kcal in 24 hours. Agree. Mutually agreed to work together to achieve appropriate goals Assist. Motivational interviewing done. Arrange. Follow-up appointment arranged. Counseling. 20 minutes spent Face to face with the patient more than 50% of time was spent counseling 07/02/2024 Basal cell carcinoma of skin of left lower limb, including hip (ICD-10 - C44.719) Linda is 53 years old lady with sleep disorder, osteoarthritis, insomnia and recent diagnosis of basal cell carcinoma on 2 sites. One on left long area which is infiltrated and 1 on the left side of her upper lip which is nodular type. She is here today for medical weight management. She is currently on Wellbutrin/naltr exone and she is unable to lose any weight. Basal cell carcinoma. She has consultation with a sewer pipe layer and with the plastic surgeon for Mohs procedure. Sleep disorder. She is currently on modafinil and it is helping Dietary recommendations. Food recall was done today and patient advised to be on low calorie, low carbohydrate diet. Restrict calories to less than 1500 kcal in 24 hours. Low glycemic index foods and encouraged. Meal replacements were recommended. Advised to use adnb-rjq-ssqwxzc multivitamins and vitamin D. Advised to use calorie counter and adhere to portion control. Monthly goal is to lose 4-6 pounds Pharmacotherapy. She is plateaued on Wellbutrin/naltr exone. She would like to continue Wellbutrin 300 mg 1 tablet daily. She may consider adding naltrexone later. Side effects explained to the patient. Goal is to lose 3-5% of body weight in 3 months. Exercise. Patient encouraged to increase frequency, intensity and duration of exercise. Encouraged to burn at least 250-500 kcal in one session. Also encouraged to do weight training Assess. Different risk factors discussed with the patient and addressed Advise. Patient was given clear And specific advise that she will comply with Low-calorie diet and try not to exceed more than 1300 kcal in 24 hours. Agree. Mutually agreed to work together to achieve appropriate goals Assist. Motivational interviewing done. Arrange. Follow-up appointment arranged. Counseling. 20 minutes spent Face to face with the patient more than 50% of time was spent counseling 12/21/2023 Dietary counseling and surveillance (ICD-10 - Z71.3) Ms. Mabry is a 53 year old lady with osteoarthritis here for medical weight management. We saw her in November. She lost 44.5 lbs in total and no significant weight loss since last visit. She is on weight watchers at this point. Her weight loss is slow. Plan is as follows: Dietary recommendations. Food recall was done today and patient advised to be on low calorie, low carbohydrate diet. Restrict calories to less than 1500 kcal in 24 hours. Low glycemic index foods and encouraged. Meal replacements were recommended. Advised to use qsrd-dhd-ugodhzn multivitamins and vitamin D. Advised to use calorie counter and adhere to portion control. Monthly goal is to lose 4-6 pounds Pharmacotherapy. Her insurance does not cover GLP-1. Continue Contrave 8-90 MG, 1 tablet in the morning for 1 week and then 1 pill in am and 1 pill in pm, then 2 pills in am and 1 pill at pm and then 2 pill in am and 2 pills in pm. We stopped metformin ER 500 mg because of SE.. Goal is to lose 3-5% of body weight in 3 months. Exercise. Patient encouraged to increase frequency, intensity and duration of exercise. Encouraged to burn at least 250-500 kcal in one session. Also encouraged to do weight training Assess. Different risk factors discussed with the patient and addressed Advise. She was given clear And specific advise that she will comply with Low-calorie diet and try not to exceed more than 1300 kcal in 24 hours. Agree. Mutually agreed to work together to achieve appropriate goals Assist. Motivational interviewing done. Arrange. Follow-up appointment arranged. Counseling. 15 minutes spent Face to face with the patient more than 50% of time was spent counseling. Other polyosteoarthrit is. Continue Ibuprofen 800 MG TID PRN. Scribe services used to formulate this note under HIPAA compliance and under [place] law mandated for scribe services. Patient aware of service. Verbal consent and written consent taken from the patient. Patient understands and verbalizes understanding of the scribes services and all questions answered regarding scribes services. Patient agrees to use of scribes services. 12/21/2023 Overweight (BMI 25.0-29.9) (ICD-10 - E66.3) Ms. Mabry is a 53 year old lady with osteoarthritis here for medical weight management. We saw her in November. She lost 44.5 lbs in total and no significant weight loss since last visit. She is on weight watchers at this point. Her weight loss is slow. Plan is as follows: Dietary recommendations. Food recall was done today and patient advised to be on low calorie, low carbohydrate diet. Restrict calories to less than 1500 kcal in 24 hours. Low glycemic index foods and encouraged. Meal replacements were recommended. Advised to use adhp-chh-hvgdogb multivitamins and vitamin D. Advised to use calorie counter and adhere to portion control. Monthly goal is to lose 4-6 pounds Pharmacotherapy. Her insurance does not cover GLP-1. Continue Contrave 8-90 MG, 1 tablet in the morning for 1 week and then 1 pill in am and 1 pill in pm, then 2 pills in am and 1 pill at pm and then 2 pill in am and 2 pills in pm. We stopped metformin ER 500 mg because of SE.. Goal is to lose 3-5% of body weight in 3 months. Exercise. Patient encouraged to increase frequency, intensity and duration of exercise. Encouraged to burn at least 250-500 kcal in one session. Also encouraged to do weight training Assess. Different risk factors discussed with the patient and addressed Advise. She was given clear And specific advise that she will comply with Low-calorie diet and try not to exceed more than 1300 kcal in 24 hours. Agree. Mutually agreed to work together to achieve appropriate goals Assist. Motivational interviewing done. Arrange. Follow-up appointment arranged. Counseling. 15 minutes spent Face to face with the patient more than 50% of time was spent counseling. Other polyosteoarthrit is. Continue Ibuprofen 800 MG TID PRN. Scribe services used to formulate this note under HIPAA compliance and under [place] law mandated for scribe services. Patient aware of service. Verbal consent and written consent taken from the patient. Patient understands and verbalizes understanding of the scribes services and all questions answered regarding scribes services. Patient agrees to use of scribes services. 02/04/2024 Annual physical exam (ICD-10 - Z00.00) 53-year-old lady with history of obesity on -weight loss program doing very well is here today for her complete physical exam. Plan as following Hypertension screening her blood pressure is within normal limits he is not on any medication she is active exercise daily and has a very good diet plan Hyperlipidemia we reviewed her lab work recently done in January 2024 total cholesterol was slightly elevated however she has been exercising and watching her diet we will recheck in 6 months she will not need any medications at this point. Obesity/weight loss program she follows with Dr. roberts she will continue her medication and plan of care as before preventive medicine She is up to date on all her preventive health measure as mentioned below Pap smear was also completed in september 2023 and was unremarkable Derm we will send a referral for annual screening in the discoloration on the left upper lip Mammogram, colonoscopy, are all up to date, vaccines up-to-date Anxiety and depression screening she has no anxiety and depression as well and her mood is good PHQ 9 scores 0 11/16/2023 Other obesity due to excess calories (ICD-10 - E66.09) Ms. Mabry is a 52 year old lady with osteoarthritis here for medical weight management. We saw her in October. She lost 44.5 lbs in total and no significant weight loss since last visit. She is on weight watchers at this point. Her weight loss is slow. Plan is as follows: Dietary recommendations. Food recall was done today and patient advised to be on low calorie, low carbohydrate diet. Restrict calories to less than 1500 kcal in 24 hours. Low glycemic index foods and encouraged. Meal replacements were recommended. Advised to use wtpc-imn-ypbowrd multivitamins and vitamin D. Advised to use calorie counter and adhere to portion control. Monthly goal is to lose 4-6 pounds Pharmacotherapy. Her insurance does not cover GLP-1. Continue Contrave 8-90 MG, 1 tablet in the morning for 1 week and then 1 pill in am and 1 pill in pm, then 2 pills in am and 1 pill at pm and then 2 pill in am and 2 pills in pm. We added metformin ER 500 mg 1 tablet twice a day to supplement her existing medication. Goal is to lose 3-5% of body weight in 3 months. Exercise. Patient encouraged to increase frequency, intensity and duration of exercise. Encouraged to burn at least 250-500 kcal in one session. Also encouraged to do weight training Assess. Different risk factors discussed with the patient and addressed Advise. She was given clear And specific advise that she will comply with Low-calorie diet and try not to exceed more than 1300 kcal in 24 hours. Agree. Mutually agreed to work together to achieve appropriate goals Assist. Motivational interviewing done. Arrange. Follow-up appointment arranged. Counseling. 15 minutes spent Face to face with the patient more than 50% of time was spent counseling. Other polyosteoarthrit is. Continue Ibuprofen 800 MG TID PRN. Scribe services used to formulate this note under HIPAA compliance and under [place] law mandated for scribe services. Patient aware of service. Verbal consent and written consent taken from the patient. Patient understands and verbalizes understanding of the scribes services and all questions answered regarding scribes services. Patient agrees to use of scribes services. 11/16/2023 Dietary counseling and surveillance (ICD-10 - Z71.3) Ms. Mabry is a 52 year old lady with osteoarthritis here for medical weight management. We saw her in October. She lost 44.5 lbs in total and no significant weight loss since last visit. She is on weight watchers at this point. Her weight loss is slow. Plan is as follows: Dietary recommendations. Food recall was done today and patient advised to be on low calorie, low carbohydrate diet. Restrict calories to less than 1500 kcal in 24 hours. Low glycemic index foods and encouraged. Meal replacements were recommended. Advised to use ipul-noa-guetajh multivitamins and vitamin D. Advised to use calorie counter and adhere to portion control. Monthly goal is to lose 4-6 pounds Pharmacotherapy. Her insurance does not cover GLP-1. Continue Contrave 8-90 MG, 1 tablet in the morning for 1 week and then 1 pill in am and 1 pill in pm, then 2 pills in am and 1 pill at pm and then 2 pill in am and 2 pills in pm. We added metformin ER 500 mg 1 tablet twice a day to supplement her existing medication. Goal is to lose 3-5% of body weight in 3 months. Exercise. Patient encouraged to increase frequency, intensity and duration of exercise. Encouraged to burn at least 250-500 kcal in one session. Also encouraged to do weight training Assess. Different risk factors discussed with the patient and addressed Advise. She was given clear And specific advise that she will comply with Low-calorie diet and try not to exceed more than 1300 kcal in 24 hours. Agree. Mutually agreed to work together to achieve appropriate goals Assist. Motivational interviewing done. Arrange. Follow-up appointment arranged. Counseling. 15 minutes spent Face to face with the patient more than 50% of time was spent counseling. Other polyosteoarthrit is. Continue Ibuprofen 800 MG TID PRN. Scribe services used to formulate this note under HIPAA compliance and under [place] law mandated for scribe services. Patient aware of service. Verbal consent and written consent taken from the patient. Patient understands and verbalizes understanding of the scribes services and all questions answered regarding scribes services. Patient agrees to use of scribes services. 10/05/2023 Other obesity due to excess calories (ICD-10 - E66.09) Ms. Mabry is a 52 year old lady with osteoarthritis here for medical weight management. We saw her in August. She lost 44.5 lbs in total and lost 3.5 lbs since last visit. She is on weight watchers at this point. Her weight loss is slow. Plan is as follows: Dietary recommendations. Food recall was done today and patient advised to be on low calorie, low carbohydrate diet. Restrict calories to less than 1500 kcal in 24 hours. Low glycemic index foods and encouraged. Meal replacements were recommended. Advised to use mpkz-mzr-vhnvsry multivitamins and vitamin D. Advised to use calorie counter and adhere to portion control. Monthly goal is to lose 4-6 pounds Pharmacotherapy. Her insurance does not cover GLP-1. Continue Contrave 8-90 MG, 1 tablet in the morning for 1 week and then 1 pill in am and 1 pill in pm, then 2 pills in am and 1 pill at pm and then 2 pill in am and 2 pills in pm. Goal is to lose 3-5% of body weight in 3 months. Exercise. Patient encouraged to increase frequency, intensity and duration of exercise. Encouraged to burn at least 250-500 kcal in one session. Also encouraged to do weight training Assess. Different risk factors discussed with the patient and addressed Advise. She was given clear And specific advise that she will comply with Low-calorie diet and try not to exceed more than 1300 kcal in 24 hours. Agree. Mutually agreed to work together to achieve appropriate goals Assist. Motivational interviewing done. Arrange. Follow-up appointment arranged. Counseling. 15 minutes spent Face to face with the patient more than 50% of time was spent counseling. Scribe services used to formulate this note under HIPAA compliance and under [place] law mandated for scribe services. Patient aware of service. Verbal consent and written consent taken from the patient. Patient understands and verbalizes understanding of the scribes services and all questions answered regarding scribes services. Patient agrees to use of scribes services. 10/05/2023 Dietary counseling and surveillance (ICD-10 - Z71.3) Ms. Mabry is a 52 year old lady with osteoarthritis here for medical weight management. We saw her in August. She lost 44.5 lbs in total and lost 3.5 lbs since last visit. She is on weight watchers at this point. Her weight loss is slow. Plan is as follows: Dietary recommendations. Food recall was done today and patient advised to be on low calorie, low carbohydrate diet. Restrict calories to less than 1500 kcal in 24 hours. Low glycemic index foods and encouraged. Meal replacements were recommended. Advised to use flzv-kym-ridbgsr multivitamins and vitamin D. Advised to use calorie counter and adhere to portion control. Monthly goal is to lose 4-6 pounds Pharmacotherapy. Her insurance does not cover GLP-1. Continue Contrave 8-90 MG, 1 tablet in the morning for 1 week and then 1 pill in am and 1 pill in pm, then 2 pills in am and 1 pill at pm and then 2 pill in am and 2 pills in pm. Goal is to lose 3-5% of body weight in 3 months. Exercise. Patient encouraged to increase frequency, intensity and duration of exercise. Encouraged to burn at least 250-500 kcal in one session. Also encouraged to do weight training Assess. Different risk factors discussed with the patient and addressed Advise. She was given clear And specific advise that she will comply with Low-calorie diet and try not to exceed more than 1300 kcal in 24 hours. Agree. Mutually agreed to work together to achieve appropriate goals Assist. Motivational interviewing done. Arrange. Follow-up appointment arranged. Counseling. 15 minutes spent Face to face with the patient more than 50% of time was spent counseling. Scribe services used to formulate this note under HIPAA compliance and under [place] law mandated for scribe services. Patient aware of service. Verbal consent and written consent taken from the patient. Patient understands and verbalizes understanding of the scribes services and all questions answered regarding scribes services. Patient agrees to use of scribes services. 07/02/2024 Sleep disorder, unspecified (ICD-10 - G47.9) Linda is 53 years old lady with sleep disorder, osteoarthritis, insomnia and recent diagnosis of basal cell carcinoma on 2 sites. One on left long area which is infiltrated and 1 on the left side of her upper lip which is nodular type. She is here today for medical weight management. She is currently on Wellbutrin/naltr exone and she is unable to lose any weight. Basal cell carcinoma. She has consultation with a sewer pipe layer and with the plastic surgeon for Mohs procedure. Sleep disorder. She is currently on modafinil and it is helping Dietary recommendations. Food recall was done today and patient advised to be on low calorie, low carbohydrate diet. Restrict calories to less than 1500 kcal in 24 hours. Low glycemic index foods and encouraged. Meal replacements were recommended. Advised to use jyqd-jgu-tqdtqpr multivitamins and vitamin D. Advised to use calorie counter and adhere to portion control. Monthly goal is to lose 4-6 pounds Pharmacotherapy. She is plateaued on Wellbutrin/naltr exone. She would like to continue Wellbutrin 300 mg 1 tablet daily. She may consider adding naltrexone later. Side effects explained to the patient. Goal is to lose 3-5% of body weight in 3 months. Exercise. Patient encouraged to increase frequency, intensity and duration of exercise. Encouraged to burn at least 250-500 kcal in one session. Also encouraged to do weight training Assess. Different risk factors discussed with the patient and addressed Advise. Patient was given clear And specific advise that she will comply with Low-calorie diet and try not to exceed more than 1300 kcal in 24 hours. Agree. Mutually agreed to work together to achieve appropriate goals Assist. Motivational interviewing done. Arrange. Follow-up appointment arranged. Counseling. 20 minutes spent Face to face with the patient more than 50% of time was spent counseling 11/16/2023 Other polyosteoarthritis (ICD-10 - M15.8) Ms. Mabry is a 52 year old lady with osteoarthritis here for medical weight management. We saw her in October. She lost 44.5 lbs in total and no significant weight loss since last visit. She is on weight watchers at this point. Her weight loss is slow. Plan is as follows: Dietary recommendations. Food recall was done today and patient advised to be on low calorie, low carbohydrate diet. Restrict calories to less than 1500 kcal in 24 hours. Low glycemic index foods and encouraged. Meal replacements were recommended. Advised to use eljn-cvz-gezjvij multivitamins and vitamin D. Advised to use calorie counter and adhere to portion control. Monthly goal is to lose 4-6 pounds Pharmacotherapy. Her insurance does not cover GLP-1. Continue Contrave 8-90 MG, 1 tablet in the morning for 1 week and then 1 pill in am and 1 pill in pm, then 2 pills in am and 1 pill at pm and then 2 pill in am and 2 pills in pm. We added metformin ER 500 mg 1 tablet twice a day to supplement her existing medication. Goal is to lose 3-5% of body weight in 3 months. Exercise. Patient encouraged to increase frequency, intensity and duration of exercise. Encouraged to burn at least 250-500 kcal in one session. Also encouraged to do weight training Assess. Different risk factors discussed with the patient and addressed Advise. She was given clear And specific advise that she will comply with Low-calorie diet and try not to exceed more than 1300 kcal in 24 hours. Agree. Mutually agreed to work together to achieve appropriate goals Assist. Motivational interviewing done. Arrange. Follow-up appointment arranged. Counseling. 15 minutes spent Face to face with the patient more than 50% of time was spent counseling. Other polyosteoarthrit is. Continue Ibuprofen 800 MG TID PRN. Scribe services used to formulate this note under HIPAA compliance and under [place] law mandated for scribe services. Patient aware of service. Verbal consent and written consent taken from the patient. Patient understands and verbalizes understanding of the scribes services and all questions answered regarding scribes services. Patient agrees to use of scribes services. 07/02/2024 Other obesity due to excess calories (ICD-10 - E66.09) Linda is 53 years old lady with sleep disorder, osteoarthritis, insomnia and recent diagnosis of basal cell carcinoma on 2 sites. One on left long area which is infiltrated and 1 on the left side of her upper lip which is nodular type. She is here today for medical weight management. She is currently on Wellbutrin/naltr exone and she is unable to lose any weight. Basal cell carcinoma. She has consultation with a sewer pipe layer and with the plastic surgeon for Mohs procedure. Sleep disorder. She is currently on modafinil and it is helping Dietary recommendations. Food recall was done today and patient advised to be on low calorie, low carbohydrate diet. Restrict calories to less than 1500 kcal in 24 hours. Low glycemic index foods and encouraged. Meal replacements were recommended. Advised to use nhsj-bli-nmjfvlk multivitamins and vitamin D. Advised to use calorie counter and adhere to portion control. Monthly goal is to lose 4-6 pounds Pharmacotherapy. She is plateaued on Wellbutrin/naltr exone. She would like to continue Wellbutrin 300 mg 1 tablet daily. She may consider adding naltrexone later. Side effects explained to the patient. Goal is to lose 3-5% of body weight in 3 months. Exercise. Patient encouraged to increase frequency, intensity and duration of exercise. Encouraged to burn at least 250-500 kcal in one session. Also encouraged to do weight training Assess. Different risk factors discussed with the patient and addressed Advise. Patient was given clear And specific advise that she will comply with Low-calorie diet and try not to exceed more than 1300 kcal in 24 hours. Agree. Mutually agreed to work together to achieve appropriate goals Assist. Motivational interviewing done. Arrange. Follow-up appointment arranged. Counseling. 20 minutes spent Face to face with the patient more than 50% of time was spent counseling 07/02/2024 Dietary counseling and surveillance (ICD-10 - Z71.3) Linda is 53 years old lady with sleep disorder, osteoarthritis, insomnia and recent diagnosis of basal cell carcinoma on 2 sites. One on left long area which is infiltrated and 1 on the left side of her upper lip which is nodular type. She is here today for medical weight management. She is currently on Wellbutrin/naltr exone and she is unable to lose any weight. Basal cell carcinoma. She has consultation with a sewer pipe layer and with the plastic surgeon for Mohs procedure. Sleep disorder. She is currently on modafinil and it is helping Dietary recommendations. Food recall was done today and patient advised to be on low calorie, low carbohydrate diet. Restrict calories to less than 1500 kcal in 24 hours. Low glycemic index foods and encouraged. Meal replacements were recommended. Advised to use vryf-gmo-guzqmjy multivitamins and vitamin D. Advised to use calorie counter and adhere to portion control. Monthly goal is to lose 4-6 pounds Pharmacotherapy. She is plateaued on Wellbutrin/naltr exone. She would like to continue Wellbutrin 300 mg 1 tablet daily. She may consider adding naltrexone later. Side effects explained to the patient. Goal is to lose 3-5% of body weight in 3 months. Exercise. Patient encouraged to increase frequency, intensity and duration of exercise. Encouraged to burn at least 250-500 kcal in one session. Also encouraged to do weight training Assess. Different risk factors discussed with the patient and addressed Advise. Patient was given clear And specific advise that she will comply with Low-calorie diet and try not to exceed more than 1300 kcal in 24 hours. Agree. Mutually agreed to work together to achieve appropriate goals Assist. Motivational interviewing done. Arrange. Follow-up appointment arranged. Counseling. 20 minutes spent Face to face with the patient more than 50% of time was spent counseling Plan Of Treatment Pending Test Test Name Order Date CHEST C- CT 01/29/2023 CHEST C- CT 02/13/2023 Future Test Test Name Order Date CBC, Platelet, No [id number] Lipid [id number] 12/21/2023 Comp. Metabolic Panel [id number] 2023 Insurance Providers Payer Name Payer Address Payer Phone Subscriber Number Group Number Insured Name Patient Relationship to Insured Coverage Start Date Coverage End Date [employer] [facility] [address] [address] [place] [phone] [id number] Raghavendra Linda Self - patient is the insured 3 Medical (General) History Medical History History ICD Code osteoarthritis genital herpes Irritable bowel syndrome With Constipati on shift work sleep disorder an d she is on modafinil. She has been working nights for last 26 years basal cell carcinoma just under the left nostril and it is nodular type Basal cell carcinoma l left long and it is infiltrating type. Surgical History Surgery Date(Month/Year) left bunionectomy cholecystectomy 2005
--- OUTSIDE RECORDS SUMMARY | 2024-09-10 07:31 | XMS_ITS | Patient Health Record ---
[facility] Address [address] [place] [address] Care Team Providers Care Change Management Specialist Name Role Phone Ángel Spear Primary Care Provider Americo Day Unavailable [phone] Allergies Allergen (clinical drug ingredient) Drug/Non Drug Allergy documented on EMR Reaction Allergy Type Onset Date Status nitrofurantoin, macrocrystals / nitrofurantoin, monohydrate Macrobid hives Drug Allergy Active Iodine Unknown Drug Allergy Active Latex Latex dermatitis Allergy Active Shellfish (FN) Shellfish-derived Products angiodema Drug Allergy Active Substance with sulfonamide structure and antibacterial mechanism of action (substance) Sulfa Antibiotics hives Drug Allergy Active COVID-19 (Adenovirus) Vaccine angiodema Drug Allergy Active Reason For Referral No Information Immunizations Vaccine Route Administration Date Status Comme nts COVID-19 Rashel & Rashel/Maxine Unknown 08/27/2020 A dministered Social History Tobacco Use: Social History Observation Description Date Details (start date - stop date) Former Smoker NA - NA Tobacco Use/Smoking Question Answer Notes Are you a: former smoker Additional Findings: Tobacco Non-User Current no n-smoker Alcohol Screen Question Answer Notes Did you have a drink containing alcohol in the p ast year? Yes Points 0 Interpretation Negative Tobacco use other than smoking: Question Answer Notes Are you an other tobacco user? Yes V ape Problems Problem Type SNOMED Code ICD Code Onset Dates Problem Status W/U Status Risk Notes Problem Localized, primary osteoarthritis of the ankle and/or foot (973443288) Primary osteoarthrit is, right ankle and foot (M19.071) Active confirmed Plan Of Treatment Pending Test Test Name Order Date X ray : Foot, left 3V 05/11/2020 X ray : Foot, right 3V 05/11/2020 Insurance Providers Payer Name Payer Address Payer Phone Subscriber Number Group Number Insured Name Patient Relationship to Insured Coverage Start Date Coverage End Date [employer] [facility] [address] [place] [id number] Linda Mabry Self - patient is the insured Medical (General) History Medical History History ICD Code Gall bladder problems Chicken pox Surgical History Surgery Date(Month/Year) cholecystectomy 11/2005 wisdom teeth extraction 1989 Domeosteotomy left foot 02/1986
== END 2024-09-10 07:29 | disposition home or self-care (01) ==
LOC: HO.CT 07:28
PROVIDERS: PCP Hospitalist; Visit Provider Physician Assistant Medical
DX: Z12.2 Encounter for screening for malignant neoplasm of respiratory organs (principal); Z87.891 Personal history of nicotine dependence; Z12.31 Encounter for screening mammogram for malignant neoplasm of breast
CPT/HCPCS: 71271; 77063; 77067

== ENCOUNTER → 2024-09-10 07:30 | Outpatient (BNV) | payer OTHER, SELFPAY | PROVIDERS: PCP Hospitalist; Visit Provider Radiology Diagnostic Radiology | DX: Z87.891 Personal history of nicotine dependence (principal) | CPT/HCPCS: 71271 ==

== ENCOUNTER 2024-12-19 08:56 | Outpatient (REF) | payer OTHER, SELFPAY ==
--- OUTSIDE RECORDS SUMMARY | 2024-04-21 10:00 | XMS_ITS ---
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 Name Role Phone SYDNI ROBERTS Primary Care Provider REASON FOR VISIT WM f/up Encounters Encounter Location Date Provider Diagnosis [facility] [address] [address] 04/21/2024 SYDNI ROBERTS Plan Of Treatment Next Appt Details Provider Name:SYDNI ROBERTS , 12/25/2024 09:45:00 AM, [address] [place] [address], [place], [address], Progress Notes * Suze MABRYJoseOB:[birth year] (54 yo F)Acc No.[id number]:04/21/2024 Patient: Linda RESENDEZ Provider: Alivia ROBERTS MD :1970 A ge:53 Y S ex:Female Date:04/21/2024 Address:[address] [place] [address] [place], [id number] Subjective: * Chief Complaints: * 1 . WM f/up. * Medical History: Objective: * Vitals: Assessment: Plan: * Treatment: * Images: * Electronic signature of CRYSTAL ROBERTS MD on 12/19/2024 at 09:36 AM EDT Sign off status: Pending * Provider: Alivia ROBERTS MD Date: 0 04/21/2024 Generated for Brandy reveles/Raphael/Suzy on: 1 09:36 AM JOSET
--- OUTSIDE RECORDS SUMMARY | 2024-08-12 11:45 | XMS_ITS ---
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 Name Role Phone SYDNI ROBERTS Primary Care Provider REASON FOR VISIT 6 week f/u Encounters Encounter Location Date Provider Diagnosis [facility] [address] [address] 08/12/2024 SYDNI ROBERTS Plan Of Treatment Next Appt Details Provider Name:SYDNI ROBERTS , 12/25/2024 09:45:00 AM, [address] [place] [address], [place], [address], Progress Notes * Suze MABRYJoseOB:[birth year] (54 yo F)Acc No.[id number]:08/12/2024 Progress Notes Patient: Linda RESENDEZ Provider: Alivia ROBERTS MD :1970 A ge:53 Y S ex:Female Date:08/12/2024 Address:[address] [place] [address] [place], [id number] Subjective: * Chief Complaints: * 1 . 6 week f/u. * Medical History: Objective: * Vitals: Assessment: Plan: * Treatment: * Images: * Electronic signature of CRYSTAL ROBERTS MD on 12/19/2024 at 09:35 AM EDT Sign off status: Pending * Provider: Alivia ROBERTS MD Date: 0 08/12/2024 Generated for Brandy reveles/Raphael/Suzy on: 1 09:35 AM JOSET
--- NOTE | ~2024-12-19 | US_ITS ---
CLINICAL HISTORY: abnormal findings US abdomen complete Comparison: None provided Findings: The visualized pancreas is normal. The aorta and inferior vena cava are normal caliber. The liver is normal in size and echotexture. Moreover, the liver demonstrates multiple anechoic foci with posterior acoustic enhancement, largest 1.7 x 1.2 x 1.6 cm in the right liver lobe. There is no intrahepatic bile duct dilatation. The common duct is 4 mm in diameter. The gallbladder is surgically absent. There is no sonographic Kemp sign. The main portal vein is antegrade. The right kidney is 11.2 cm in length. Moreover, upper pole anechoic focus posterior acoustic enhancement, 1.6 x 1.3 x 1.5 cm; simple cyst. The left kidney is 11.7 cm in length. The spleen is normal. No ascites. IMPRESSION: 1. Prior cholecystectomy. 2. Hepatic cysts, as discussed above. This document has been electronically signed by: Pedro Pablo Jovel MD on 12/20/2024 18:44:47
--- OUTSIDE RECORDS SUMMARY | 2024-12-19 09:36 | XMS_ITS | Clinical Summary ---
Author Organization [facility] Address [address] [place] [address] Care Team Providers Care Dry Wall Finisher Name Role Phone Pcp, No Primary Care Provider Unavailabl e Encounters Date Type Department Care Team Description 12/03/2024 Travel from Last 3 Months Immunizations Immunization Administration Dates Next Due Influenza, Recombinant, Triv alent (FLUBLOK) Preservative Free IM 11/11/2024 Social History Tobacco Use Types Packs/Day Years Used Date Smoking Tobacco: Never Assessed Comments Unknown Sex and Gender Information Value Date Recorded Sex Assigned at Not on file Legal Sex Female 4:06 PM EDT Gender Identity Not on file Sexual Orientation Not on file Plan of Treatment Health Maintenance Due Date Last Done Comments Hepatitis C Virus Screening 1971 HIV Screening 11/16/1984 DTaP/Tdap/Td Vaccines (1 - Tdap) 11/16/1990 Hepatitis B Vaccines (1 of 3 - 19+ 3-dose series) 11/16/1990 Pap Smear (Ages 21-65) 11/16/1992 Mammogram 2011 Colonoscopy 11/16/2016 Pneumococcal Vaccines 50+ (1 of 1 - PCV) 11/16/2021 Zoster (Shingles) Vaccine (1 of 2) 11/16/2021 COVID-19 Vaccine (2 - 2024-2 6 season) 2024 03/01/2021 RSV Vaccine 50 years and old er and Patients (1 - 1-dose 75+ series) 11/16/2046 Influenza Vaccine Completed 11/11/2024, , 12/04/2023, Additional history exists Care Teams Dry Wall Finisher Relationship Specialty Start Date End Date Pcp, No PCP - General General Medicine 10/07/24
--- OUTSIDE RECORDS SUMMARY | 2024-12-19 09:36 | XMS_ITS ---
Author Name [facility] Organization Unknown Encounters Encounter Type Encounter Reason Primary Diagnosis Location Date Ambulatory [facility] 12/03/2024 Care Team Organization Name Specialty Phone Email Start Date End Da te [facility] PCP Stem Dryer Maintainer 12/03/2024 [facility] NO PCP Primary Care 10/07/2024
--- OUTSIDE RECORDS SUMMARY | 2024-12-19 09:36 | XMS_ITS | Data Portability ---
Author Organization [facility] [address] Address [address] [place] [address] Assessment No assessment recorded. Plan of Treatment [...] Out Template NON DOT completed LORETTA BROOKS [facility] 06/08/2022 08:26:39 Imaging Results None recorded. Procedure [...] Diagnosis SNOMED-CT Code Diagnosis ICD10 Code Diagnosis IMO Codes Diagnosis Note [id number] [address] [place] [address] 07/16/2018 12:31:02 07/16/2018 13:04:38 [id number] [address] [place] [address] 03/17/2019 13:06:08 03/17/2019 13:45:55 [id number] [address] [place] [address] 02/11/2017 08:18:20 02/11/2017 08:58:11 [id number] [address] [place] [address] 01/28/2017 08:16:10 01/28/2017 09:27:50 [id number] [facility] [address] [place] [address] 06/08/2022 08:04:41 06/08/2022 08:25:58 History and physical examination, occupation 431932220 Z02.1 Health Concerns Section Related Observation LastModified by Organization Detai ls LastModified Time None Recorded Concern Status LastModified by Organization Details LastModified Time None Recorded Advance Directives Directive None Recorded Payers Insurance Date Sequence Insurance Name Policy Number Policy Bell Covered Member ID Bell Member ID Guarantor Name 06/08/2022 OC-ESCREEN [employer] [facility] Linda Mabry 06/08/2022 1 [employer] [id number] Linda Mabry [id number] Linda Mabry OBGyn Episode No OBEpisode recorded.
--- OUTSIDE RECORDS SUMMARY | 2024-12-19 09:36 | XMS_ITS | Patient Health Record ---
[facility] Address [address] [place] [address] Care Team Providers Care Reed Maker Name Role Phone Beartis Neal Primary Care Provider Americo Rose Unavailable [phone] Allergies Allergen (clinical drug ingredient) Drug/Non Drug [...] primary osteoarthritis of the ankle and/or foot (202933401) Primary osteoarthrit is, right ankle and foot (M19.071) Active confirmed Plan Of Treatment Pending Test Test Name Order Date X ray : Foot, left 3V 05/11/2020 X ray : Foot, right 3V 05/11/2020 Insurance Providers Payer Name Payer Address Payer Phone Subscriber Number Group Number Insured Name Patient Relationship to Insured Coverage Start Date Coverage End Date [facility] [address] [place] [id number] Linda Mabry Self - patient is the insured Medical (General) History Medical History History ICD Code Gall bladder problems Chicken pox Surgical History Surgery Date(Month/Year) cholecystectomy 11/2005 wisdom teeth extraction 1989 Domeosteotomy left foot 02/1986
--- OUTSIDE RECORDS SUMMARY | 2024-12-19 09:36 | XMS_ITS | Patient Health Record ---
Author Organization [facility] Address [address] [place] [address] Care Team Providers Care Integration Engineer Name Role Phone SYDNI ROBERTS Primary Care Provider [phone] Shalonda Robledo Unavailable [phone] Adalgisa Ro Unavailable [phone] Allergies Allergen (clinical drug ingredient) Drug/Non Drug Allergy documented on EMR Reaction Allergy Type Onset Date Status povidone-iodine Betadine anaphylaxis Drug Allergy Active nitrofurantoin, macrocrystals / nitrofurantoin, monohydrate Macrobid hives Drug Allergy Active topiramate Topamax blurry vision Drug Allergy Ac tive Latex Latex Unknown Allergy Active Substance with sulfonamide structure and antibacterial mechanism of action (substance) Sulfa Antibiotics hives Drug Allergy Active Pfizer COVID-19 Vac-Homero 5-11y anaphylaxis Drug Allergy Active Reason For Referral Reason annual screening dis coloration above the left lip Diagnosis 1 Encounter for screen ing for malignant neoplasm of skin (Z12.83) Referral Organization [facility] Referring Provider First Name Shalonda Referring Provider Last Name Meena Referring Provider Speciality Internal M edicine Referred Provider Specialty Dermatology General Notes Referral faxed to Luna guillen [facility]. Please contact patient to [email or web address] 02/14/2024 12:51:17 PM > Referral Priority Routine Reason pain planter aspect left foot Please evaluate and treat Diagnosis 1 Left foot pain (M79. 672) Referral Organization [facility] Referring Provider First Name SYDNI Referring Provider Last Name ARMANDO Referring Provider Speciality Internal M edicine Referred Provider Specialty Podiatry General Notes Please call the raoul ent to schedule the appointment, [facility] - [phone], ZhenTreein 07/03/2024 03:53:58 PM > Referral Priority Routine Medications Medication SIG (Take, Route, Frequency, Duration) Notes Start Date End Date Status Zepbound 5 MG/0.5ML 0.5 mL Subcutaneous weekly; Duration: 30 days 10/23/2024 Active Saxenda 18 MG/3ML 3 mg Subcutaneous on ce a day; Duration: 90 days Not-Takin g DHEA 25 MG as directed Orally daily; Duration: 90 days 07/06/2023 Not-Jose ing Ondansetron HCl 8 mg TAKE 1 TABLET TWICE A DAY NEEDED; Duration: 10 days Active Wegovy 0.25 MG/0.5ML 0.25 mg Subcutaneou s once a week; Duration: 30 day(s) 05/19/2022 Not-Taking valACYclovir HCl 500 MG 1 tablet Orally 2 TIMES A DAY NEEDED; Duration: 10 days prn 05/19/2022 Active valACYclovir HCl 500 MG 1 tablet Orally two times a day as needed; Duration: 10 days 05/22/2023 Not-Taking Linzess 290 MCG TAKE 1 CAPSULE DAILY AT LEAST 30 MINUTES BEFORE THE FIRST MEAL OF THE DAY ON AN EMPTY STOMACH Active Ibuprofen 800 MG 1 tablet with food o r milk as needed Orally Three times a day; Duration: 90 days prn 12/28/2020 Active BD Pen Needle Charlotte 2nd Gen 32G X 4 MM USE 1 NEEDLE WITH SAXENDA INTRAMUSCULAR ONCE A DAY 30 DAYS; Duration: 90 Not-Taking Estradiol 0.025 MG/24HR 1 patch to skin Transdermal Two times a Week; Duration: 30 days Active Wellbutrin XL 300 MG 1 tablet in the mor toi Orally Once a day; Duration: 30 days Active Progesterone 200 MG 1 capsule Orally At night; Duration: 90 days Active metFORMIN HCl ER 500 MG 1 tablet with ev ening meal Orally twice a day; Duration: 30 days 11/16/2023 Not-Taking Modafinil 200 MG TAKE ONE (1) TABLET BY MOUTH EACH MORNING; Duration: 90 10/23/2024 Active Immunizations Vaccine Route Administration Date Status Comme [...] Status Risk Notes Problem Genital herpes simplex (68642811) Herpesviral infection of urogenital system, unspecified (A60.00) Active confirmed Problem Basal cell carcinoma of face (299483134) Basal cell carcinoma of skin of other parts of face (C44.319) Active confirmed Problem Basal cell carcinoma of lower extremity (258543580) Basal cell carcinoma of skin of left lower limb, including hip (C44.719) Active confirmed Problem Obesity due to excess calories (624593611) Other obesity due to excess calories (E66.09) Active confirmed Problem Insomnia (591540299) Insomnia, unspecified (G47.00) Active confirmed Problem Sleep disorder (04981895) Sleep disorder, unspecified (G47.9) Active confirmed Problem Constipation (59254333) Constipation, unspecified (K59.00) Active confirmed Problem Polyarthritis (540183837) Other polyosteoarthritis (M15.8) Active confirmed Problem Menopause (638260456) Menopausal and female climacteric states (N95.1) Active confirmed Problem History of disease caused by Severe acute respiratory syndrome coronavirus 2 (situation) (384562908673608 105) Personal history of COVID-19 (Z86.16) Active confirmed Problem Overweight (495345807) Overweight (BMI 25.0-29.9) (E66.3) Active confirmed Vital Signs Heart Rate 84 /min 11/27/2024 Temperature 96.6 degrees Fahrenheit 11/27/2024 Oximetry 98 % 11/27/2024 Blood pressure diastolic 82 mm Hg 11/27/2024 Height 64 in 11/27/2024 Blood pressure systolic 118 mm Hg 11/27/2024 Weight 158.9 lbs 11/27/2024 BMI 27.27 kg/m2 11/27/2024 Encounters Encounter Location Date Provider Diagnosis [address] [place] [address] 12/21/2023 TROY GUL Dietary counseling and surveillance Z71.3 and Overweight (BMI 25.0-29.9) E66.[address] [place] [address] 01/23/2024 TROY GUL [address] [place] [address] 02/04/2024 Shalonda Robledo Annual physical exam Z00.[address] [place] [address] 02/13/2024 TROY GUL Overweight (BMI 25.0-29.9) E66.3 and Dietary counseling and surveillance Z71.[address] [place] [address] 03/20/2024 TROY GUL Dietary counseling and surveillance Z71.3 and Overweight (BMI 25.0-29.9) E66.[address] [place] [address] 07/02/2024 TROY GUL Basal cell carcinoma of skin of left lower limb, including hip C44.719 ; Basal cell carcinoma of skin of other parts of face C44.319 ; Sleep disorder, unspecified G47.9 ; Other obesity due to excess calories E66.09 and Dietary counseling and surveillance Z71.[address] [place] [address] 10/23/2024 TROY GUL Other obesity due to excess calories E66.09 and Dietary counseling and surveillance Z71.[address] [place] [address] 11/27/2024 TROY GUL Other obesity due to excess calories E66.09 and Dietary counseling and surveillance Z71.3 [facility] [address] [place] [address] 07/04/2024 [facility] [address] [place] [address] 08/11/2024 [facility] [address] [place] [address] 08/20/2024 [facility] [address] [place] [address] 09/12/2024 [facility] Abnormal findings on diagnostic imaging of liver and biliary tract R93.2 [facility] [address] [place] [address] 09/12/2024 [facility] [address] [place] [address] 10/20/2024 [facility] [address] [place] [address] 10/29/2024 [facility] [address] [place] [address] 12/19/2024 [facility] [address] [place] [address] 04/30/2024 [facility] [address] [place] [address] 05/02/2024 [facility] [address] [place] [address] 05/09/2024 [facility] [address] [place] [address] 08/05/2024 [facility] [address] [place] [address] 09/11/2024 [facility] [address] [place] [address] 10/20/2024 TROY ARMANDO [facility] [address] [place] [address] 10/25/2024 TROY ARMANDO Other obesity due to excess calories E66.09 [facility] [address] [facility] [address] [place] [address] 10/27/2024 TROY ARMANDO Other obesity due to excess calories E66.[address] [place] [address] 10/27/2024 TROY ARMANDO [address] [place] [address] 11/20/2024 SYDNI ROBERTS Other obesity due to excess calories E66.09 Assessments Encounter Date Diagnosis (ICD Code) Assessment Notes Treatment Notes Treatment Clinical Notes Section Notes 12/21/2023 Dietary counseling and surveillance (ICD-10 - [...] Meal replacements were recommended. Advised to use azqq-zcz-ksjtfty multivitamins and vitamin D. Advised to use [...] 50% of time was spent counseling. Other polyosteoarthriti s. Continue Ibuprofen 800 MG TID PRN. Scribe services used to formulate this note under HIPAA compliance and under [place] law mandated for scribe services. Patient aware [...] Meal replacements were recommended. Advised to use oeum-psk-otbamus multivitamins and vitamin D. Advised to use [...] 50% of time was spent counseling. Other polyosteoarthriti s. Continue Ibuprofen 800 MG TID PRN. Scribe services used to formulate this note under HIPAA compliance and under [place] law mandated for scribe services. Patient aware [...] mood is good PHQ 9 scores 0 02/13/2024 Dietary counseling and surveillance (ICD-10 - [...] Meal replacements were recommended. Advised to use jpus-sew-fzqjgat multivitamins and vitamin D. Advised to use [...] Meal replacements were recommended. Advised to use rjho-zkl-shttzrx multivitamins and vitamin D. Advised to use [...] 50% of time was spent counseling 03/20/2024 Dietary counseling and surveillance (ICD-10 - [...] Meal replacements were recommended. Advised to use mkvd-zpi-ntfjadm multivitamins and vitamin D. Advised to use [...] Meal replacements were recommended. Advised to use krxd-cyv-ceqzldz multivitamins and vitamin D. Advised to use [...] medical weight management. She is currently on Wellbutrin/naltre xone and she is unable to lose any weight. Basal cell carcinoma. She has consultation with a fishing boat mate and with the plastic surgeon for Mohs procedure. Sleep disorder. She is currently on modafinil and it is helping Dietary recommendations. Food recall was done today and patient advised to be on low calorie, low carbohydrate diet. Restrict calories to less than 1500 kcal in 24 hours. Low glycemic index foods and encouraged. Meal replacements were recommended. Advised to use ikoe-ars-fbypyvw multivitamins and vitamin D. Advised to use calorie counter and adhere to portion control. Monthly goal is to lose 4-6 pounds Pharmacotherapy. She is plateaued on Wellbutrin/naltre xone. She would like to continue Wellbutrin 300 [...] medical weight management. She is currently on Wellbutrin/naltre xone and she is unable to lose any weight. Basal cell carcinoma. She has consultation with a fishing boat mate and with the plastic surgeon for Mohs procedure. Sleep disorder. She is currently on modafinil and it is helping Dietary recommendations. Food recall was done today and patient advised to be on low calorie, low carbohydrate diet. Restrict calories to less than 1500 kcal in 24 hours. Low glycemic index foods and encouraged. Meal replacements were recommended. Advised to use dfxw-gdb-ikwnvgy multivitamins and vitamin D. Advised to use calorie counter and adhere to portion control. Monthly goal is to lose 4-6 pounds Pharmacotherapy. She is plateaued on Wellbutrin/naltre xone. She would like to continue Wellbutrin 300 [...] than 50% of time was spent counseling 09/12/2024 Abnormal findings on diagnostic imaging of liver and biliary tract (ICD-10 - R93.2) 10/23/2024 Other obesity due to excess calories (ICD-10 - E66.09) Linda is 53 years old lady with sleep disorder, multiple joint osteoarthritis, urogenital herpes, postmenopausal symptoms, class I obesity is here for medical weight management. She has been off medication since June and she has also noticed that medication is not working anymore. She is interested in Zepbound. She also complained of difficulty sleeping and her deposit refund clerk suggested to increase progesterone to 200 mg daily at bedtime along with estrogen. Dietary recommendations. Food recall was done today and patient advised to be on low calorie, low carbohydrate diet. Restrict calories to less than 1500 kcal in 24 hours. Low glycemic index foods and encouraged. Meal replacements were recommended. Advised to use sybn-fiq-jzuhkdw multivitamins and vitamin D. Advised to use calorie counter and adhere to portion control. Monthly goal is to lose 4-6 pounds Pharmacotherapy. Started on Zepbound 2.5 mg every weekly. Side effects explained to the patient. Goal [...] than 50% of time was spent counseling 10/23/2024 Dietary counseling and surveillance (ICD-10 - Z71.3) Linda is 53 years old lady with sleep disorder, multiple joint osteoarthritis, urogenital herpes, postmenopausal symptoms, class I obesity is here for medical weight management. She has been off medication since June and she has also noticed that medication is not working anymore. She is interested in Zepbound. She also complained of difficulty sleeping and her deposit refund clerk suggested to increase progesterone to 200 mg daily at bedtime along with estrogen. Dietary recommendations. Food recall was done today and patient advised to be on low calorie, low carbohydrate diet. Restrict calories to less than 1500 kcal in 24 hours. Low glycemic index foods and encouraged. Meal replacements were recommended. Advised to use xude-ahh-uevigto multivitamins and vitamin D. Advised to use calorie counter and adhere to portion control. Monthly goal is to lose 4-6 pounds Pharmacotherapy. Started on Zepbound 2.5 mg every weekly. Side effects explained to the patient. Goal [...] than 50% of time was spent counseling 10/25/2024 Other obesity due to excess calories (ICD-10 - E66.09) 10/27/2024 Other obesity due to excess calories (ICD-10 - E66.09) 11/20/2024 Other obesity due to excess calories (ICD-10 - E66.09) 11/27/2024 Other obesity due to excess calories (ICD-10 - E66.09) Linda is 54 years old lady with sleep disorder, multiple joint osteoarthritis, urogenital herpes, postmenopausal symptoms, class I obesity is here for medical weight management. She is currently on Zepbound 2.5 mg and she has lost roughly 10 pounds since her last visit. She also had a Mohs procedure on left long by Dr. Beckwith. Dietary recommendations. Food recall was done today and patient advised to be on low calorie, low carbohydrate diet. Restrict calories to less than 1500 kcal in 24 hours. Low glycemic index foods and encouraged. Meal replacements were recommended. Advised to use pzxg-cla-dpfdryz multivitamins and vitamin D. Advised to use calorie counter and adhere to portion control. Monthly goal is to lose 4-6 pounds Pharmacotherapy. Started on Zepbound 2.5 mg every weekly. Side effects explained to the patient. Goal [...] than 50% of time was spent counseling 11/27/2024 Dietary counseling and surveillance (ICD-10 - Z71.3) Linda is 54 years old lady with sleep disorder, multiple joint osteoarthritis, urogenital herpes, postmenopausal symptoms, class I obesity is here for medical weight management. She is currently on Zepbound 2.5 mg and she has lost roughly 10 pounds since her last visit. She also had a Mohs procedure on left long by Dr. Beckwith. Dietary recommendations. Food recall was done today and patient advised to be on low calorie, low carbohydrate diet. Restrict calories to less than 1500 kcal in 24 hours. Low glycemic index foods and encouraged. Meal replacements were recommended. Advised to use odqg-ouu-weinstu multivitamins and vitamin D. Advised to use calorie counter and adhere to portion control. Monthly goal is to lose 4-6 pounds Pharmacotherapy. Started on Zepbound 2.5 mg every weekly. Side effects explained to the patient. Goal [...] 50% of time was spent counseling 07/02/2024 Sleep disorder, unspecified (ICD-10 - G47.9) Linda is 53 years old lady with sleep disorder, osteoarthritis, insomnia and recent diagnosis of basal cell carcinoma on 2 sites. One on left long area which is infiltrated and 1 on the left side of her upper lip which is nodular type. She is here today for medical weight management. She is currently on Wellbutrin/naltre xone and she is unable to lose any weight. Basal cell carcinoma. She has consultation with a fishing boat mate and with the plastic surgeon for Mohs procedure. Sleep disorder. She is currently on modafinil and it is helping Dietary recommendations. Food recall was done today and patient advised to be on low calorie, low carbohydrate diet. Restrict calories to less than 1500 kcal in 24 hours. Low glycemic index foods and encouraged. Meal replacements were recommended. Advised to use xhth-ovi-guhheza multivitamins and vitamin D. Advised to use calorie counter and adhere to portion control. Monthly goal is to lose 4-6 pounds Pharmacotherapy. She is plateaued on Wellbutrin/naltre xone. She would like to continue Wellbutrin 300 [...] 50% of time was spent counseling 07/02/2024 Other obesity due to excess calories [...] medical weight management. She is currently on Wellbutrin/naltre xone and she is unable to lose any weight. Basal cell carcinoma. She has consultation with a fishing boat mate and with the plastic surgeon for Mohs procedure. Sleep disorder. She is currently on modafinil and it is helping Dietary recommendations. Food recall was done today and patient advised to be on low calorie, low carbohydrate diet. Restrict calories to less than 1500 kcal in 24 hours. Low glycemic index foods and encouraged. Meal replacements were recommended. Advised to use kjya-gaw-ntxrbty multivitamins and vitamin D. Advised to use calorie counter and adhere to portion control. Monthly goal is to lose 4-6 pounds Pharmacotherapy. She is plateaued on Wellbutrin/naltre xone. She would like to continue Wellbutrin 300 [...] medical weight management. She is currently on Wellbutrin/naltre xone and she is unable to lose any weight. Basal cell carcinoma. She has consultation with a fishing boat mate and with the plastic surgeon for Mohs procedure. Sleep disorder. She is currently on modafinil and it is helping Dietary recommendations. Food recall was done today and patient advised to be on low calorie, low carbohydrate diet. Restrict calories to less than 1500 kcal in 24 hours. Low glycemic index foods and encouraged. Meal replacements were recommended. Advised to use xuos-uys-knnmmxi multivitamins and vitamin D. Advised to use calorie counter and adhere to portion control. Monthly goal is to lose 4-6 pounds Pharmacotherapy. She is plateaued on Wellbutrin/naltre xone. She would like to continue Wellbutrin 300 [...] Treatment Pending Test Test Name Order Date Ultrasound : Abdominal 09/12/2024 CHEST C- CT 01/29/2023 CHEST C- CT 02/13/2023 Future Test Test Name Order Date CBC, Platelet, No Differential-[id number] Lipid Panel-[id number] 12/21/2023 Comp. Metabolic Panel [id number] 2023 Next Appt Details Provider Name:SYDNI RICHARDSONDaksha , 12/25/2024 09:45:00 AM, [address] [place] [address], [id number], Insurance Providers Payer Name Payer Address Payer Phone Subscriber Number Group Number Insured Name Patient Relationship to Insured Coverage Start Date Coverage End Date [employer] [address] [address] [place] [address] [id number] Raghavendra Linda Self - patient is the [...] left long and it is infiltrating type. s/p MOH Surgery by Dr Beckwith on Nov 04, 2024 Surgical History Surgery Date(Month/Year) left bunionectomy cholecystectomy 2005
== END 2024-12-19 08:57 | disposition home or self-care (01) ==
LOC: HO.US 08:56
PROVIDERS: PCP Hospitalist; Visit Provider Hospitalist
DX: R93.2 Abnormal findings on diagnostic imaging of liver and biliary tract (principal)
CPT/HCPCS: 76700

== ENCOUNTER → 2024-12-19 09:34 | Outpatient (BNV) | payer OTHER, SELFPAY | PROVIDERS: PCP Hospitalist; Visit Provider Radiology Diagnostic Radiology | DX: K76.89 Other specified diseases of liver (principal) | CPT/HCPCS: 76700 ==